=== PATIENT | female | born 1950 | race Caucasian/White ===

== ENCOUNTER 2022-12-14 14:57 | Outpatient (REF) | payer OTHER, SELFPAY | END 2022-12-14 14:58 | disposition home or self-care (01) | LOC: HO.LNP 14:57 | PROVIDERS: Visit Provider Physician Assistant | DX: L28.2 Other prurigo (principal) | CPT/HCPCS: 87070; 87205 ==

== ENCOUNTER 2025-02-23 13:43 | Outpatient (REF) | payer OTHER, SELFPAY ==
--- OUTSIDE RECORDS SUMMARY | 2025-02-23 14:13 | XMS_ITS | Clinical Summary ---
Author Organization [facility] Address [address] [place] [phone] Phone Care Team Providers Care Cashier Self Service Gasoline Name Role Phone Adebayo Chacko DO Primary Care Provider [phone] Encounters Date Type Department Care Team Description 02/21/2025 Transcribe Orders Virtual Department [address] [place] [address] Chelle Hurtado PA Postmenopausal bleeding (Primary Dx) from Last 3 Months Social History Tobacco Use Types Packs/Day Years Used Date Smoking Tobacco: Never Assessed Comments Unknown Sex and Gender Information Value Date Recorded Sex Assigned at Not on file Legal Sex Female 8:53 AM EDT Gender Identity Not on file Sexual Orientation Not on file Plan of Treatment Upcoming Encounters Date Type Department Care Team (Late st Contact Info) Description 02/28/2025 2:15 PM EDT Appointment [facility] [address] [place] [address] Chelle Hurtado PA [address] [place] [address] [place] [address] Medical Devices Not on file Insurance [employer] MEDICARE PREFERRED HMO REPLACEMENT [employer] MEDICARE PREFERRED HMO REPLACEMENT [employer] RE[employer]AC[employer] Care Teams Cashier Self Service Gasoline Relationship Specialty Start Date End Date Adebayo Chacko DO [address] [place] [phone] PCP - General Internal Medicine 02/23/25 Additional Source Comments The information contained in this document represents components of the legal health record. It is not the complete legal health record.[facility]
--- OUTSIDE RECORDS SUMMARY | 2025-02-23 14:13 | XMS_ITS | Encounter Summary ---
Author Organization [facility] Address [address] [place] [address] Phone Care Team Providers Care Vending Machine Mechanic Name Role Phone Adebayo Chacko DO Primary Care Provider [phone] Encounter Details Date Type Department Care Team (Latest Contact Info) Description 02/21/2025 Transcribe Orders Virtual Department [address] [place] [address] Chelle Hurtado PA [address] [place] [address] Postmenopausal bleeding (Primary Dx) Social History Tobacco Use Types Packs/Day Years Used Date Smoking Tobacco: Never Assessed Comments Unknown Sex and Gender Information Value Date Recorded Sex Assigned at Not on file Legal Sex Female 8:53 AM EDT Gender Identity Not on file Sexual Orientation Not on file documented as of this encounter Plan of Treatment Upcoming Encounters Date Type Department Care Team (Late st Contact Info) Description 02/28/2025 2:15 PM EDT Appointment [facility] [address] [place] [address] Chelle Hurtado PA [address] [place] [address] Scheduled Orders Name Type Priority Associated Diagnoses Orde r Schedule US Pelvis Imaging Routine Postmenopausal bleeding Expected: 02/21/2025, Expires: 02/21/2026 documented as of this encounter Visit Diagnoses Diagnosis Postmenopausal bleeding- Primary documented in this encounter Care Teams Vending Machine Mechanic Relationship Specialty Start Date End Date Adebayo Chacko DO [address] [place] [address] [email or web address] PCP - General Internal Medicine 02/23/25 documented as of this encounter Additional Source Comments The information contained in this document represents components of the legal health record. It is not the complete legal health record.[facility]
[2025-02-23 15:48] LABS: MANUAL DIFF FLAG NO
[2025-02-23 15:57] LABS: Hematocrit 39.6 % (37.0-47.0); Hemoglobin 13.5 g/dl (12.0-16.0); Imm Gran Abs Auto 0.02 X10*3/uL (0.00-0.03); Imm Gran Pct Auto 0.3 % (0.0-0.4); Lymphocytes Absolute Auto 1.3 X10*3/uL (1.2-4.9); Mean Corpuscular HGB Conc 34.1 g/dl (31.0-35.0); Mean Corpuscular Hemoglobin 30.7 pg (27.0-33.0); Mean Corpuscular Volume 90.0 fL (80.0-98.0); NRBC Abs Auto 0.000 X10*3/uL (0.0-0.012); NRBC Pct Auto 0.0 /100WBC (0.0-0.2); Platelet Count 302 X10*3/uL (160-400); Red Blood Count 4.40 X10*6/uL (4.20-5.50); White Blood Count 7.0 X10*3/uL (4.8-10.8)
[2025-02-23 16:47] LABS: Iron 64 mcg/dL (30-160); Percent Iron Saturation 20 % (15-50); Total Iron Binding Capacity 321 mcg/dL (228-428); Unsaturated Iron Binding 257 ug/dL
[2025-02-23 17:03] LABS: Ferritin 38 ng/mL (10-250)
== END 2025-02-23 13:44 | disposition home or self-care (01) ==
LOC: HO.MANLDS 13:43
PROVIDERS: Visit Provider Physician Assistant
DX: N95.0 Postmenopausal bleeding (principal)
CPT/HCPCS: 36415; 82728; 83540; 85025; 85652; 86140

== ENCOUNTER 2025-03-14 09:00 | Outpatient (REF) | payer OTHER, SELFPAY | END 2025-03-14 09:01 | disposition home or self-care (01) | LOC: HO.LNP 09:00 | PROVIDERS: Visit Provider Obstetrics & Gynecology | DX: N95.0 Postmenopausal bleeding (principal); Z12.31 Encounter for screening mammogram for malignant neoplasm of breast | CPT/HCPCS: 87626; 88175 ==

== ENCOUNTER 2025-03-14 09:00 | Outpatient (AMB) | payer OTHER, SELFPAY ==
--- NOTE | 2025-03-14 09:03 | A.OFFVIS_ITS ---
Vital Signs 03/14/25 09:04 Height 5 ft 4 in Weight 153 lb BMI 26.3 BP 116/74 Intake Visit Reasons: endometrial hyperplasia Drafting Clerk Required: No Information Interpreted: non-clinical & clinical Sanforizer: Sanforizer Present Accompanied by: Self / Same As Patient Allergies Sulfa (Sulfonamide Antibiotics) Allergy (Intermediate, Verified 03/14/25 09:05) Hives Is last menstrual period known: Yes Last menstrual period: 04/18/20 Post menopausal: Yes Patient : No Do you need a note to return to daycare/school/sports/work: Yes (for surgery on wednesday) HPI Comments Details: Presenting complaining of an episode of vaginal bleeding 2 weeks ago. The patient is on estradiol patch and Prometrium daily, stopped Prometrium every other day this was followed by an episode of bleeding Pelvic ultrasound done at [facility] on 02/28/2025 for postmenopausal bleeding showed thickened heterogenous endometrial stripe of 14 mm . Last co testing was? Last mammogram 3 years ago [facility] Surgical History History of oophorectomy, unilateral History of laparoscopy Family History Mother HTN (hypertension) Rheumatoid arteritis Father HTN (hypertension) High cholesterol Social History Household Members: Spouse and Children Housing: House Alcohol intake: never Patient Tobacco Use Status: Never used Tobacco Current occupational status: retired Sexually active: Yes Sexual orientation: Straight/Heterosexual Gender identity: Female Female Reproductive History Menstrual Date of last menstrual period: 04/18/20 Total pregnancies: 2 Full term: 1 Number of Living Children: 1 Review of Systems Card Reports as per HPI and Reports no additional complaints Resp Reports as per HPI and Reports no additional complaints GI Reports as per HPI and Reports no additional complaints Reports as per HPI Physical Exam Vital Signs: Last Vital Signs BP 116/74 03/14/25 09:04 BMI result Body Mass Index 26.3 Const General: cooperative, healthy appearing and comfortable Resp Effort & Inspection: normal respiratory effort Auscultation: clear to auscultation bilaterally Percussion: percussion normal Cardio Palpation: normal PMI Rate: regular rate Rhythm: regular rhythm Heart sounds: no murmurs and no rubs Peripheral pulses: Peripheral pulses 2+ throughout GI Inspection: Yes normal to inspection Palpation (GI): Soft to palpation, nontender, no guarding, not rigid and No hepatosplenomegaly present Percussion: Yes normal to percussion Auscultation: normal bowel sounds Rectal Exam - Female: deferred Assessment & Plan Assessment & Plan (1) Postmenopausal bleeding: Code(s): N95.0 - Postmenopausal bleeding Category: Medical Plan: Screening mammogram ordered. Co testing done. Instructions given to patient to discontinue estradiol patch and Prometrium Discussed with the patient the pelvic ultrasound findings, the endometrial stripe thickenss measured by ultrasound was more than 4mm. The negative predictive value, positive predictive value, Sensitivity, specificity of using ultrasound measurement of endometrial stripe to detecting endometrial pathology including hyperplasia , polyp or cancer were discussed with the patient. Recommended to the patient that the next step is an endometrial sampling via hysteroscopy D&C possible polypectomy versus endometrial biopsy to r/o endometrial pathology including hyperplasia or cancer. All the pros and cons risks and benefits of each approach were discussed with the patient, endometrial biopsy being less invasive, office procedure with less sensitivity and inability diagnose a polyp and removal versus hysteroscopy done under anesthesia more invasive more sensitive to endometrial cancer and possibility of diagnosing and endometrial polyp with the possibility of polypectomy. All questions were answered pt verbalized understanding and decided to proceed with hysteroscopy D&C possible polypectomy. Discussed with the patient the procedure , all benefits and risks including but not limited to inability to complete the procedure , insufficient endometrial tissue for a complete evaluation of the endometrial cavity , bleeding, infection, possible need for blood transfusion with all its risk ( HIV,syphilis, Hepatitis, anaphylaxis shock, others..), injury to bladder, rectum, possible need for laparoscopy/laparotomy or hysterectomy. The patient verbalized understanding and signed the consent. Instructions given the patient to stay NPO after midnight the day prior to the procedure and to take only the specific medication (s) discussed the morning of the surgical procedure and to schedule a 2 week postoperative appointment Orders: Orders MM tomosynthesis screening Today Z12.31 - Encounter for screening mammogram for malignant neoplasm of breast Coding Level of Care Code New Pt Level 3 (09822) Diagnoses Postmenopausal bleeding N95.0
[2025-03-14 09:04] VITALS: BP 116/74; BMI 26.3
--- OUTSIDE RECORDS SUMMARY | 2025-03-14 10:36 | XMS_ITS | Encounter Summary ---
Author Organization [facility] Address [address] [place] [phone] Phone Care Team Providers Care Gas Cutter Name Role Phone Adebayo Chacko DO Primary Care Provider [phone] Encounter Details Date Type Department Care Team (Latest Contact Info) Description 02/21/2025 Transcribe Orders Virtual Department [address] [place] [address] Chelle Hurtado PA [address] [facility] [place] [address] [place] [address] Postmenopausal bleeding (Primary Dx) Social History Tobacco Use Types Packs/Day Years Used Date Smoking Tobacco: Never Assessed Education Answer Date Recorded Are you interested in more education? Not on alfonso e 02/23/2025 Are you concerned about learning? Not on file 02/23/2025 No 02/23/2025 No 02/23/2025 Digital Access Answer Date Recorded No 02/23/2025 No 02/23/2025 Reliable internet access at home? Not on file 02/23/2025 Device with a working camera? Not on file Comments Unknown Sex and Gender Information Value Date Recorded Sex Assigned at Female 02/28/2025 9:10 AM EDT Legal Sex Female 8:53 AM EDT Gender Identity Female 02/28/2025 9:10 AM EDT Sexual Orientation Choose not to disclose 2024 9:10 AM EDT documented as of this encounter Plan of Treatment Not on file documented as of this encounter Results * US PELVIS TRANSABDOMINAL PLUS TRANSVAGINAL (02/28/2025 2:42 PM EDT) MGB IMG RECOMMENDATION COMMENT Anteverted uterus 14 mm; uterus bleeding; uterus submucosal fibroid; uterus malignancy; heterogeneous endometrial stripe; endometrial hyperplasia; Nonvisualization ovaries [facility] Anatomical Region Laterality Modality Pelvis, Uterus/Adnexa Ultrasound 02/28/2025 3:24 PM EDT Impressions 02/28/2025 3:27 PM EDT 1. Anteverted uterus with heterogeneous endometrial stripe measuring 14 mm in thickness. This is abnormal in a postmenopausal patient with bleeding. This may be due to endometrial hyperplasia, submucosal fibroid, or malignancy. AIR HOIST OPERATOR consultation recommended for consideration of biopsy. 2. Nonvisualization of the ovaries. Narrative 02/28/2025 3:27 PM EDT US PELVIS TRANSABDOMINAL AND TRANSVAGINAL Referring clinician's provided indication for this examination in [facility]: Outside Radiology Order; postmenopausal bleeding TECHNIQUE: Pelvic Ultrasound Transabdominal performed for global imaging of the pelvis. Pelvic Ultrasound Transvaginal performed for detailed imaging of the endometrium and/or adnexa. COMPARISON: None FINDINGS: Uterus: Size: 8.8 cm x 3.6 cm by 5.4 cm. Orientation: anteverted Myometrium: Diffusely heterogeneous without focal lesion. Endometrium: The endometrial stripe is 14 mm in thickness and appears heterogeneous. No fluid identified in the endometrial canal There are nabothian cysts in the cervix Right adnexa: Ovary: The right ovary is not visualized. Left adnexa: Ovary: The left ovary is not visualized Free fluid: No significant free fluid. Procedure Note Usman Magaña MD - 02/28/2025 US PELVIS TRANSABDOMINAL AND TRANSVAGINAL Referring clinician's provided indication for this examination in [facility]:Outside Radiology Order; postmenopausal bleeding TECHNIQUE: Pelvic Ultrasound Transabdominal performed for global imagingof the pelvis. Pelvic Ultrasound Transvaginal performed for detailedimaging of the endometrium and/or adnexa. COMPARISON: None FINDINGS: Uterus: Size: 8.8 cm x 3.6 cm by 5.4 cm. Orientation: anteverted Myometrium: Diffusely heterogeneous without focal lesion. Endometrium: The endometrial stripe is 14 mm in thickness and appearsheterogeneous. No fluid identified in the endometrial canal There are nabothian cysts in the cervix Right adnexa: Ovary: The right ovary is not visualized. Left adnexa: Ovary: The left ovary is not visualized Free fluid: No significant free fluid. IMPRESSION: 1. Anteverted uterus with heterogeneous endometrial stripe measuring 14mm in thickness. This is abnormal in a postmenopausal patient withbleeding. This may be due to endometrial hyperplasia, submucosal fibroid,or malignancy. AIR HOIST OPERATOR consultation recommended for consideration of biopsy. 2. Nonvisualization of the ovaries. us Chelle VELASQUEZ IMG US PELVIS Final Resul t documented in this encounter Visit Diagnoses Diagnosis Postmenopausal bleeding- Primary Postmenopausal bleeding documented in this encounter Care Teams Gas Cutter Relationship Specialty Start Date End Date Adebayo Chacko DO [address] [place] [address] [email or web address] PCP - General Internal Medicine 02/23/25 documented as of this encounter Additional Source Comments The information contained in this document represents components of the legal health record. It is not the complete legal health record.[facility]
--- OUTSIDE RECORDS SUMMARY | 2025-03-14 10:36 | XMS_ITS | Clinical Summary ---
Author Organization [facility] Address [address] [place] [address] Phone Care Team Providers Care Saw Man Name Role Phone Adebayo Chacko DO Primary Care Provider [phone] Encounters Date Type Department Care Team Description 02/28/2025 1:54 PM EDT - 02/28/2025 11:59 PM EDT Hospital Encounter [facility], [address] [address] Chelle Hurtado PA Discharge Disposition: Home or Self Care 02/21/2025 Transcribe Orders Virtual Department [address] [place] [address] Chelle Hurtado PA Postmenopausal bleeding (Primary Dx) [...] not to disclose 2024 9:10 AM EDT Plan of Treatment Not on file Medical Devices Not on file Procedures Procedure Name Priority Date/Time Associated Diagnosis Comments US PELVIS TRANSABDOMINAL PLUS TRANSVAGINAL Routine 02/28/2025 2:42 PM EDT Postmenopausal bleeding from Last 3 Months Results * US PELVIS TRANSABDOMINAL PLUS TRANSVAGINAL (02/28/2025 2:42 PM EDT) MGB IMG RECOMMENDATION COMMENT Anteverted uterus 14 mm; uterus bleeding; uterus submucosal fibroid; uterus malignancy; heterogeneous endometrial stripe; endometrial hyperplasia; Nonvisualization ovaries [facility] Anatomical Region Laterality Modality Pelvis, Uterus/Adnexa Ultrasound 02/28/2025 3:24 PM EDT Impressions 02/28/2025 3:27 PM EDT 1. Anteverted uterus with heterogeneous endometrial stripe measuring 14 mm in thickness. This is abnormal in a postmenopausal patient with bleeding. This may be due to endometrial hyperplasia, submucosal fibroid, or malignancy. ASSEMBLER MECHANICAL ORDNANCE consultation recommended for consideration of biopsy. 2. Nonvisualization of the ovaries. Narrative 02/28/2025 3:27 PM EDT US PELVIS TRANSABDOMINAL AND TRANSVAGINAL Referring clinician's provided indication for this examination in [facility]: Outside Radiology Order; postmenopausal bleeding TECHNIQUE: Pelvic [...] clinician's provided indication for this examination in [facility]:Outside Radiology Order; postmenopausal bleeding TECHNIQUE: Pelvic Ultrasound [...] due to endometrial hyperplasia, submucosal fibroid,or malignancy. ASSEMBLER MECHANICAL ORDNANCE consultation recommended for consideration of biopsy. 2. Nonvisualization of the ovaries. [facility] VELASQUEZ IM US PELVIS Final Resul t from Last 3 Months Insurance [employer]ED [employer] REPLACEMENT MEDICARE PART A & B Member Subscriber Plan / Payer (Ef fective 2025-Present) Name:Erika Lombardi Member ID:[id number] Relation to Subscriber:Self Name:PolandErika fleming Subscriber ID:[id number] Payer ID:[id number] Group ID:Not on file Type:Medicare Address: [employer] [address] [employer]ED HMO REPLACEMENT MEDICARE PART A & B [employer] REPLACEMENT MEDICARE PART A & B [employer]ED [employer]MO REPLACEMENT MEDICARE PART A & [place] [address] [address] MEDICARE PREFERRED HMO REPLACEMENT MEDICARE PART A & B [employer] REPLAC[employer] MEDICARE PART A & B Care Teams Saw Man Relationship Specialty Start Date End Date Adebayo Chacko DO [address] [place] [id number] [email or web address] PCP - General Internal Medicine 02/23/25 Additional Source Comments The information contained in this document represents components of the legal health record. It is not the complete legal health record.[facility]
== END 2025-03-14 09:57 | disposition home or self-care (01) ==
LOC: HO.HWS 09:01
PROVIDERS: Visit Provider Obstetrics & Gynecology
DX: N95.0 Postmenopausal bleeding (principal)
CPT/HCPCS: 99203

== ENCOUNTER → 2025-03-20 12:49 | Outpatient (BNV) | payer OTHER, SELFPAY | PROVIDERS: PCP Internal Medicine; Visit Provider Obstetrics & Gynecology | DX: N84.0 Polyp of corpus uteri (principal) | CPT/HCPCS: 58558 ==

== ENCOUNTER 2025-03-20 16:37 | Outpatient (BNV) | payer OTHER, SELFPAY | END 2025-03-20 16:44 | PROVIDERS: Absent Provider Internal Medicine Critical Care Medicine; Admitting Provider Internal Medicine Critical Care Medicine; PCP Internal Medicine; Visit Provider Radiology Diagnostic Radiology | DX: R06.02 Shortness of breath (principal) | CPT/HCPCS: 71045 ==

== ENCOUNTER 2025-03-20 16:37 | Inpatient (IN) | payer MEDICARE, SELFPAY ==
--- OUTSIDE RECORDS SUMMARY | 2025-03-15 19:27 | XMS_ITS | Data Portability ---
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) MDM MODERATE MUST MEET 2 OUT OF 3 ELEMENTS: PROBLEMS, DATA OR RISK ELEMENT 1: PROBLEMS ADDRESSED 1 OR MORE CHRONIC ILLNESS WITH EXACERBATION OR 2 OR MORE STABLE CHRONIC ILLNESSES OR 1 UNDIAGNOSED NEW PROBLEM OR 1 ACUTE ILLNESS W/SYMPTOMS OR 1 ACUTE COMPLICATED INJURY ELEMENT 2: DATA MUST MEET 1 OF 3 CATEGORIES CATEGORY 1: REVIEW OF PRIOR EXTERNAL NOTES, REVIEW OF RESULTS, ORDERING OF EACH TEST, ASSESSMENT REQUIRING INDEPENDENT HISTORIAN OR CATEGORY 2: INDEPENDENT INTERPRETATION OF TESTS BY ANOTHER PHYSICIAN OR SPECIALIST OR CATEGORY 3: DISCUSSION OF MGT OR TEST INTERPRETATION W/EXTERNAL PHYSICIAN OR SPECIALIST ELEMENT 3: RISK RISK OF COMPLICATIONS AND/OR MORBIDITY OR MORTALITY OF PATIENT MANAGEMENT PROVIDER MUST THOROUGHLY DOCUMENT EACH ELEMENT THAT IS COVERED [email or web address] Not available 05/26/2022 14:26:36 Plan of Treatment Reminders Order Date Submit Date Provider Last Modified By Organization Details Last Modified Time Details Appointments None recorded. Lab culture, skin - posterior left leg; calf 2022 023 [facility], [address] [place] [address], [place], [address], 3 11:23:12 unlisted lab - routine culture, stool 2021 022 [employer] (Centralized Electronic Ordering - All Locations), Patient Can Go To The Location Of Their Choice, [id number] 14:00:33 unlisted lab - fecal elastase 2021 022 [employer] [facility] (Centralized Electronic Ordering - All Locations), Patient Can Go To The Location Of Their Choice, [address] 2 14:00:33 Referral dermatolog ist referral 2023 024 [email or web address] 10 Mik Stearns MD, [address] [place], [address], 4 08:08:22 Procedures None recorded. Surgeries None recorded. Imaging None recorded. Medication Orders alprazolam 0.5 mg tablet 2024 025 [facility]/Pharmacy #[id number], [address] [place], [address], 5 15:10:55 albuterol sulfate HFA 90 mcg/actuat ion aerosol inhaler 2023 024 [id number] [address] [place], [address], 4 14:47:39 clonidine HCl 0.1 mg tablet 2023 024 [facility], [address] [place], [address], 5 15:06:07 valacyclov ir 1 gram tablet [address]/Pharmacy #0084, [address] [place], [address], 4 14:32:29 prednisone 10 mg tablet [address]/Pharmacy #0084, [address] [place], [address], 4 14:32:16 dicyclomin e 10 mg capsule 2021 023 [facility]/Pharmacy #0084, [address] [place], [address], 3 11:03:23 Patient TargetsNo targets recorded. Patient InstructionsNo instructions recorded. Reason for Referral Ham Sawyer Referral for M ultiple benign melanocytic nevi needs routine skin exam for new moles Referring Physician: Chelle Hurtado, Internal Medicine, Encounter Date: 12/27/2023 Results Created Date Observation Date Name Description Value Unit Range Abnormal Flag Note LastModifiedBy Organization Detail LastModifiedTime 02/29/20 25 02/28/2025 US, pelvi s, trans abdom inal + trans vagin al No observ ation record ed. [facility] [address], [place], [address], 03/02/2025 11:15:21 Result Notes None recorded. Problems Name Problem SNOMED Code Status Onset Date Resolution Date Notes Provider Name and Address Organization Details Recorded Time Carotid artery stenosis 99240055 Active 2021 Not Available [facility] 4 14:20:46 Carotid artery stenosis 29184586 Active 2021 mild, will monitor , repeat US every year (next check 02/10) Not Available [facility] 4 14:20:46 Irritable bowel syndrome 04175653 Active 2021 Not Available [facility] 4 14:20:46 Menopausa l syndrome 232552047 Active 2021 Not Available [facility] 4 14:20:46 Abdominal pain 98876105 Active 2021 Not Available [facility] 4 14:20:46 Herpes zoster 5389601 Active 2022 Not Available [facility] 4 14:20:46 Pruritic rash 16886497 Active 2022 Not Available [facility] 4 14:20:46 Anxiety 13587541 Active 2022 Not Available [facility] 4 14:20:46 Asthma 834483447 Active 2022 Not Available [facility] 4 14:20:46 Menopausa l symptom 68944268 Active 2023 CHELLE HURTADO, RON [address] [place] [address], [address], [facility] 4 08:32:49 Selective serotonin re-uptake inhibitor withdrawa l 624205936 Active 2023 RON QUINTEROS [address] [place] [address], [address], [facility] 4 14:39:35 Multiple benign melanocyt ic nevi 574301510 Active 2023 RON QUINTEROS [address] [place] [address], [address], [facility] 4 14:53:39 Skin lesion 45071780 Active 2023 RON QUINTEROS [address] [place] [address], [address], [facility] 4 08:44:46 Acute urinary tract infection 158074959 Active 2024 RON QUINTEROS [address] [place] [address], [address], [facility] 5 08:59:48 Chronic low back pain 857124421 Active 2024 RON QUINTEROS [address] [place] [address], [address], [facility] 5 15:55:01 Postmenop ausal bleeding 58949234 Active 2024 RON QUINTEROS [address] [place] [address], [address], [facility] 5 13:30:40 Endometri al hyperplas ia 897194809 Active 2024 RON QUINTREOS [address] [place] [address], [address], [facility] 5 11:15:51 Notes:Some problems listed i n Documents: #[id number], #[id number], #[id number], #[id number], #[id number] could not be added to this patient's chart. Please review these documents and add these problems to the patient's chart manually as needed. Problem Notes None recorded. Medical Equipment None Reported. Allergies Allergen ID Allergen Name Allergen Category Reaction Reaction Severity Criticality Documentation Date Start Date Code Code System Note Provider Name and Address Organization Details Recorded Time 5953 Bactrim medicatio n hives Not available Not available 02/02/2022 43876 9 RxNorm Nyasia nunez [facility] 2 11:49:15 595 Valium medicatio n hallucina tions Not available Not available 02/02/202276959 2 RxNorm Nyasia Parkerner mayra [facility] Internal [facility] 2 11:49:30 Medications Name Sig Start Date Stop Date Status Note LastModified by Organization Details LastModified Time clonidine HCl 0.1 mg tablet TAKE 1 TABLET BY MOUTH TWICE A DAY NEEDED 01/30 completed Not Available Not Available Not Available prednisone 10 mg tablet 40 mg x 3 days30 mg x 3 days20 mg x 3 days10 mg x 3 days 12/26 completed Not Available Not Available Not Available valacyclovi r 1 gram tablet Take 1 tablet every 8 hours by oral route for 7 days. 12/26 completed Not Available Not Available Not Available alprazolam 0.5 mg tablet Take 1 tablet twice a day by oral route as needed for 30 days. 2024 active Not Available Not Available Not Avai lable amoxicillin 875 mg tablet Take 1 tablet every 12 hours by oral route for 10 days. 01/30 completed Not Available Not Available Not Available estradiol 0.025 mg/24 hr weekly transdermal patch apply one patch twice a week through transderm al route 2024 active Not Available Not Available Not Avai lable lorazepam 0.5 mg tablet Take 1 tablet twice a day by oral route as needed for 30 days. 01/30 completed Not Available Not Available Not Available estradiol 1 mg tablet Take 1 tablet every day by oral route as directed for 21 days. 01/30 completed Not Available Not Available Not Available albuterol sulfate HFA 90 mcg/actuati on aerosol inhaler Inhale 2 puffs every 4 hours by inhalatio n route for 30 days. 2023 active Not Available Not Available Not Avai lable dicyclomine 10 mg capsule Take 1 capsule 3 times a day by oral route as needed for 10 days. 12/14 completed Not Available Not Available Not Available progesteron e micronized 100 mg capsule TAKE 1 CAPSULE BY MOUTH EVERY DAY 01/30 completed Not Available Not Available Not Available estradiol 0.025 mg/24 hr semiweekly transdermal patch APPLY 1 PATCH BY TRANSDERM AL ROUTE TWICE A WEEK 07/26 completed Not Available Not Available Not Available duloxetine 20 mg capsule,del ayed release TAKE 1 CAPSULE BY MOUTH EVERY DAY FOR 90 DAYS NEEDS APPT FOR FURTHER REFILLS. CALL OFFICE 2024 active Not Available Not Available Not Avai lable duloxetine 30 mg capsule,del ayed release Take 1 capsule every day by oral route. 12/26 completed Not Available Not Available Not Available Jinteli 1 mg-5 mcg tablet Take 1 tablet every day by oral route for 90 days. 05/27 completed Not Available Not Available Not Available Vitals Date Recorded Body height Body mass index (BMI) Body weight Heart rate Oxygen saturation Oxygen saturation in Arterial blood by Pulse oximetry Systolic And Diastolic Provider Name and Address Organization Details Last Updated DateTime 3 162.56 cm 25.6 kg/m2 35735.2 6 g 62 /min 99 % 99 % 120/70 mm[Hg] Ghazal Granados [facility] 3 11:06:02 Date Recorded Body height Body mass index (BMI) Body weight Heart rate Oxygen saturation Oxygen saturation in Arterial blood by Pulse oximetry Systolic And Diastolic Provider Name and Address Organization Details Last Updated DateTime 4 162.56 cm 24.9 kg/m2 15921.8 9 g 66 /min 97 % 97 % 122/72 mm[Hg] Kory Rocha [facility] 4 14:33:51 Date Recorded Body height Body mass index (BMI) Body weight Heart rate Oxygen saturation Oxygen saturation in Arterial blood by Pulse oximetry Systolic And Diastolic Provider Name and Address Organization Details Last Updated DateTime 5 162.56 cm 24.7 kg/m2 54782.3 g 68 /min 98 % 98 % 120/80 mm[Hg] Ghazal Granados [facility] 5 14:49:50 Date Recorded Body weight Body mass index (BMI) Body height Oxygen saturation Oxygen saturation in Arterial blood by Pulse oximetry Heart rate Systolic And Diastolic Provider Name and Address Organization Details Last Updated DateTime 2 91899.2 9 g 24 kg/m2 162.56 cm 98 % 98 % 81 /min 118/62 mm[Hg] Nyasia Gross [facility] 2 11:52:59 Date Recorded Body height Body mass index (BMI) Body weight Oxygen saturation Oxygen saturation in Arterial blood by Pulse oximetry Heart rate Systolic And Diastolic Provider Name and Address Organization Details Last Updated DateTime 2 162.56 cm 24.5 kg/m2 81577.2 7 g 99 % 99 % 62 /min 120/60 mm[Hg] Nyasia Gross [facility] 2 13:50:34 Social History Question Answer Notes LastModified by Organizat ion Details LastModified Time Tobacco Smoking Status Never Smoker Nyasia Gross [facility] 02/02/2022 11:43:30 What Was The Date Of Your Most Recent Tobacco Screening? 01/30/2025 [email or web address] Information not available 01/30/2025 Sex: Unknown Functional Status Question Answer Note LastModified by Organization D etails LastModified Time Do you or have you ever used any other forms of tobacco or nicotine? No [email or web address] Information not available 12/14/2022 Mental Status None recorded. Family History Nothing Reported. Medical History No medical history recorded. Gynecological HistoryNo gynecological history recorded. Obstetrics History GPAL:G 0 P 0 0 0 0 Immunizations Vaccine Type Date Status Note Provider Nam e and Address Organization Details Recorded Time COVID-19, mRNA, LNP-S, PF, 100 mcg/0.5mL dose or 50 mcg/0.25mL dose 1 completed Not Available [facility] 06/26/2023 14:20:47 COVID-19, mRNA, LNP-S, PF, 100 mcg/0.5mL dose or 50 mcg/0.25mL dose 1 completed Not Available [facility] 06/26/2023 14:20:47 COVID-19, mRNA, LNP-S, PF, 100 mcg/0.5mL dose or 50 mcg/0.25mL dose 1 completed Not Available [facility] 06/26/2023 14:20:47 Influenza, split virus, quadrivalent, preservative 3 completed Not Available [facility] 06/26/2023 14:20:46 Influenza, split virus, quadrivalent, preservative 7 completed Not Available [facility] 06/26/2023 14:20:47 Influenza, split virus, quadrivalent, preservative 0 completed Not Available [facility] 06/26/2023 14:20:47 Influenza, split virus, quadrivalent, preservative 1 completed Not Available [facility] 06/26/2023 14:20:46 influenza, [id number] 1 completed Not Available [facility] 06/26/2023 14:20:47 influenza, [id number] 2 completed Not Available [facility] 06/26/2023 14:20:47 Past Encounters Encounter ID Performer Location Encounter Start Date Encounter Closed Date Diagnosis/Indication Diagnosis SNOMED-CT Code Diagnosis ICD10 Code Diagnosis IMO Codes Diagnosis Note [id number] RON QUINTEROS [facility] [address] [facility],[place] [address] 02/02/2022 11:21:10 02/03/2022 11:05:37 Carotid artery stenosis 98353325 I65.29 will monitor every year Irritable bowel syndrome 21522235 K58.9 will fu in a few weeks [id number] Adebayo Chacko DO [facility] [address] [facility],[place] [address] 05/26/2022 13:46:02 05/26/2022 14:37:05 Abdominal pain 32954634 R10.9 long detailed discussion for thislong discuss about various factors we will have her get stool cult and pancreatic enzyme fecal elastasesh e will then try miralax daily and she will be seen after the holdiay [id number] Adebayo Chacko [facility] [address] [facility],[place] [address] 12/14/2022 10:57:22 12/14/2022 11:44:36 Herpes zoster 1251113 B02.9 start med combo Pruritic rash 61073570 L 28.2 send out culture [id number] Adebayo Chacko [facility] [address] [facility],[place] [address] 12/27/2023 14:13:12 12/27/2023 15:00:08 Renewal of prescription 459722933 Z76.0 refilled Depression screening 171 584126 Z13.31 long standing hx of depression , has been seeing Selective serotonin re-uptake inhibitor withdrawal 269718615 T43.205A will have her try clonidine for the withdrawal symptomsca n use ativan as well for the more severe effects Asthma 296016042 J45.90 9 needs refill Multiple b enign melanocytic nevi 598222850 D22.9 will set up with derm [id number] Adebayo Chacko [facility] [address] [facility],[place] [address] 01/30/2025 14:21:42 01/30/2025 15:22:33 Depression screening 059062735 Z13.31 long standing hx of depression , has been seeing Anxiety 51074466 F41.9 will adjust to alt to continue to have patient come down of the duloxetine Health Concerns Section Related Observation LastModified by Organization Detai ls LastModified Time None Recorded Concern Status LastModified by Organization Details LastModified Time None Recorded Advance Directives Directive None Recorded Payers Insurance Date Sequence Insurance Name Policy Number Policy Craig Covered Member ID Craig Member ID Guarantor Name 01/31/2025 1 [facility] - MEDICARE PREFERRED (MEDICARE REPLACEMENT HMO) JAZMINE Lombardi [id number] 1 Erika Lombardi Notes Date Note Type Note Provider Name and Address Organization Details Recorded Time 2 text/html ROS as noted in the HPI NPV the patient has a life line screening done for insurancethe patient reports that she has mild build up of plaque, bilateral carotid stenosis minimal change in bone density screening, already doing strength and vitamin D supplementationwill just screen again in two years; would prefer to be off medication if they can discussed gut health, possible IBS C but did have an indepth convo about SIBO as a possilibity and the treatment that comes with it will start elim diet and again and start walking again to eliminate other variables after further discussion as she had been doing this prior will fu with patient soon RON QUINTEROS [address] [place], [address], [facility] 02/02/2022 13:27:43 2 text/html ROS as noted in the HPI ongoing abdominal pain and irritable bowel symptomsstarted sev years agoand was seen by GI and had colonoscopy which was negrelates that she has been having these bouts of abdom pain feel tightness and pain in a bdlast bout was a year ago and she saw another GI dr and was told to clean out colon and told to take linzess has had linzess in past which did not work most recently at [facility] she had another bout after eating and relates had another bout yesterday always after eating relates she has had a prob with anxiety depress for decades Adebayo Chacko DO [address] [place], [address], [facility] 06/01/2022 13:54:38 3 text/html ROS as noted in the HPI c/o rash rash behind the left knee > spreading up posteriorly of the left legpossible shingles? vs herpes/staph infection? less likely given her presentationburning, painful and itchy no fever, no chills vesicles fluid filled took a swab of the patient's leaking vescile to send out to confirm diagnosisexclude others RON QUINTEROS [address] [place], [address], [facility] 12/14/2022 11:29:06 4 text/html ROS as noted in the HPI medication f/u the patient reports that she has been doing overall the patient reports she is doing okay with the duloxetine that we have taking it over from her psychcurrently on the duloxetine 20 mg after previous discussion on the portalthe patient originally start at 30 mg, down to 20 mg, still have some issues getting off the medication (was switched to this due to difficulties getting of paxil) discussed options, will see if clonidine helps with the withdrawal symptoms she has been experiencing needs refill of her inhaler as wellhas been using it a little bit more due to weather RON QUINTEROS [address] [place], [address], [facility] 12/27/2023 14:58:44 5 text/html ROS as noted in the HPI medication check the patient is doing wellthe patient is still having trouble with anxiety and disassociation as she tried to lower her dose of duloxetine the patient and I discussed some optionsthe patient and I will switch out the xanax for longer affect she tends to get panic attacks and feels very poor as she goes down on the dose duloxetine will have patient send my an update on the portal RON QUINTEROS [address] [place], [address], [facility] 01/30/2025 15:21:39 OBGyn Episode No OBEpisode recorded.
--- OUTSIDE RECORDS SUMMARY | 2025-03-15 19:27 | XMS_ITS | Data Portability ---
Author Organization [place] - [facility],, NAN HADLEY MD Address [address] [facility] [address] [place] [address] Assessment No assessment recorded. Plan of Treatment Reminders Order Date Submit Date Provider Last Modified By Organization Details Last Modified Time Details Appointments None recorded. Lab cytology, Pap smear 2012 013 [facility], Cytopathology Service, [address] [place], [address], 3 07:53:21 occult blood, screen 2012 013 [email or web address] 1 In-Office Order, Internal Use Only DO Not Attach Compendium DO Not Attach Compendium, Do Not Delete/merge, [id number] 3 13:43:04 biopsy, endometri al 2012 013 [facility], Cytopathology Service, [address] [place], [address], 3 05:14:19 cytology, Pap smear 2011 012 [facility], Cytopathology Service, [address] [place], [address], 3 05:13:52 occult blood, screen 2011 012 [facility] In-Office Order, Internal Use Only DO Not Attach Compendium DO Not Attach Compendium, Do Not Delete/merge, [id number] 3 05:13:49 Referral None recorded. Procedures biopsy, endometri um (PROC) 2012 013 AMBER In-Office Order, Internal Use Only DO Not Attach Compendium DO Not Attach Compendium, Do Not Delete/merge, [id number] 3 05:14:18 Surgeries None recorded. Imaging MAMMO, screening , digital, bilateral 2012 013 [facility] [address] [place], [address], 4 07:42:10 ultrasoun d, pelvic transabdo colleen & transvagi nal 2012 013 [facility] (Radiology), [address] [place], [address], 3 05:14:16 bone density study 2011 012 [facility] (Central Scheduling Radiology), [address] [place], [address], 3 05:13:51 MAMMO, screening , digital, bilateral 2011 012 [facility] (Central Scheduling Radiology), [address] [place], [address], 3 05:13:52 Medication Orders Detrol LA 4 mg capsule,e xtended release 2012 013 [id number], [address] [place] [address], [id number], 3 11:46:00 Patient TargetsNo targets recorded. Patient Instructions Encounter Date Encounter Id Patient Instructions Last Modified By Organization Details Last Modified Time 2011 [id number] hot flashes duri ng menopause: care instructions AMBER Not available 01/13/2013 05:13:52 She appears to b e doing well. She is advised to get 1500 mg of calcium daily into her diet and supplements combined. There is a health benefit with adequate vitamin D supplementation to at least 400 units daily, daily aerobic exercise of 30 minutes, and stress reduction. Monthly self breast exam was taught, and stressed, and is advised to call if she discovers any new mass in the breast. Seat belt use for herself and passengers are advised. There are significant health benefits of becoming and remainig fit, with an optimal BMI. There is a potential reduction in chronic discomfort, diminished risks of hypertension, diabetes, and heart disease with the proper weight management. With a recommended BMI there can be improved mobility as she ages. Strategies to reach and maintain her target weight were discussed in detail. She has not had a bone density test in a few years, one is ordered. She is considering going back on HRT, issues discussed, she will think about it and return for discussion if she would like to learn more about this. Not available 12/25/2011 12:54:54 07/18/2012 [id number] vaginal bleeding after menopause: care instructions AMBER Not available 01/13/2013 05:14:16 She is having ne w onset PMB, will have her go for a pelvic sonogram then return for an EMB, we discussed this at length, she understands and agrees. Literature given to review. Return for EMB. All questions answered, we discussed the mylex and pipelle emb and why we would use the different types of cannual. Face to face discussion 25 minutes Not available 07/18/2012 13:44:51 07/26/2012 [id number] endometrial biop sy: about this test AMBER Not available 01/13/2013 05:14:18 She tolerated th e EMB well, post op care discussed. Call for results. Not available 07/26/2012 14:06:20 04/11/2013 [id number] vaccinations for children: care instructions [email or web address] Not available 04/11/2013 14:16:55 influenza (flu) vaccine: care instructions [email or web address] Not available 04/11/2013 14:16:55 learning about breast cancer screening [email or web address] Not available 04/11/2013 12:18:15 bladder training : care instructions [email or web address] Not available 04/11/2013 12:18:15 She appears to b e doing well. She has been having urinary incontinence, just happens she does not feel it when it does, few drops at a time, we discussed options , she would like to try Detrol to see if this helps, possible side effects and risks discusesd, all questions answered. If no improvement suggest she go for urology referral. She requests a flu vaccine today, one is given. She is advised to get 1500 mg of calcium daily into her diet and supplements combined. There is a health benefit with adequate vitamin D supplementation to at least 400 units daily, daily aerobic exercise of 30 minutes, and stress reduction. Monthly self breast exam was taught, and stressed, and is advised to call if she discovers any new mass in the breast. Seat belt use for herself and passengers are advised. There are significant health benefits of becoming and remainig fit, with an optimal BMI. There is a potential reduction in chronic discomfort, diminished risks of hypertension, diabetes, and heart disease with the proper weight management. With a recommended BMI there can be improved mobility as she ages. Strategies to reach and maintain her target weight were discussed in detail. Not available 04/11/2013 13:43:04 Reason for Referral None Reported. Results Created Date Observation Date Name Description Value Unit Range Abnormal Flag Note LastModifiedBy Organization Detail LastModifiedTime 04/11/20 13 04/11/2013 occul t blood , scree n Occult Blood negati ve Not Available In-Office Order Internal Use Only DO Not Attach Compendium DO Not Attach Compendium, Do Not Delete/merge, [id number] 04/11/2013 11:06:37 12/25/19 12 12/25/2011 occul t blood , scree n Occult Blood negati ve Not Available In-Office Order Internal Use Only DO Not Attach Compendium DO Not Attach Compendium, Do Not Delete/merge, [id number] 12/25/2011 10:25:19 12/24/19 12 2011 cytol ogy, Pap smear Pap neg Not Available [facility], Cytopathology Service [address] [place], [address], 12/28/2011 09:22:57 07/26/19 13 07/26/2012 patho logy, surgi lucia surgicalcase endom etria l biops y: -frag ments of benig n proli ferat eb type endom etria l epith elium . -endo metri al polyp . kelsi alcantara M.D. (case maddison d 07 28 2012) pre-o p/cli nical diagn osis: postm enopa usal bleed ing speci men and site: endom etriu m-bio psy gross descr iptio n: label ed endo metri al biops y . recei jr in forma harpreet IS a 2.0 x 1.0 x 0.2 [address] gate of soft, epstein-p ink to red tissu e fragm ents admix ed with mucus and blood clot, which IS wrapp ed in paper and submi tted in toto in one casse tte, multi ple piece s, x2. ts physi cians : felicia carmona n /#[phone] anato jenifer patho logy servi wallace provi ded [facility] at [address] [place] [address], [place] [address] Not Available [facility], Cytopathology Service [address] [place] [address], [address], 07/28/2012 12:05:10 04/11/20 13 04/11/2013 pap1c ase [id number] thinp rep Pap, image d: negat eb for squam ous intra epith elial lesio n and malekaterina angelocy . rebec ca isis abad, CT(as cp) (case elect trey hopper maddison d 04 13 2013) adequ acy: satis facto ry. endoc ervic al trans forma tion zone compo nent absen t. sourc e: thinp rep Pap, cervi lucia, image d clini lucia infor matio n: HPV if diagn osis of ASCUS . menop ause, lps 2 neg * cytop athol ogy servi wallace provi ded by [facility] at the above addre ss. Not Available [facility], Cytopathology Service [address] [place] [address], [address], 04/14/2013 09:23:21 01/06/20 12 01/05/2012 bone densi ty study No observ ation record ed. [facility] (Medical Records) [address], [place], [address], 01/13/2013 05:13:52 01/13/20 12 01/05/2012 MAMMO , scree chelo, digit al, bilat eral No observ ation record ed. [facility] (Central Scheduling Radiology) [address] [place], [address], 01/13/2013 05:13:53 01/18/20 12 01/05/2012 imagi ng/di agnos tic resul t No observ ation record ed. [facility] Not Available 2012 05:13:56 07/25/19 13 07/21/2012 ultra sound , pelvi c trans abdom inal & trans vagin al No observ ation record ed. [facility] (Radiology) [address] [place], [address], 01/13/2013 05:14:21 Result Notes None recorded. Problems Name Problem SNOMED Code Status Onset Date Resolution Date Notes Provider Name and Address Organization Details Recorded Time Endometriosis Active Not Available [facility] 3 03:01:02 Oligoovulator y dysfunctional uterine bleeding 052211014 Active Not Available [facility] 3 03:01:09 Postmenopausa l bleeding 35784813 Active Not Available [facility] 3 03:01:02 Senile osteopenia 52138102 Active Not Available [facility] 3 03:01:02 Depressive disorder 58382577 Active Not Available [facility] 3 03:01:02 Specialized medical examination Active Nan Hadley MD [address], [place], [address] , [place] [facility], 3 13:43:04 Urinary incontinence 406519972 Active Nan Hadley MD [address], [place], [address] , [place] [facility], 3 13:43:04 Problem Notes None recorded. Procedures Surgical History Date Name Laterality Status Provider Name and Address Organization Details Recorded Time 07/26/19 13 Endometrial Biopsy completed Nan Hadley MD [address] [facility],[address], [place], [address], [place] - [facility], 07/26/2012 15:20:18 12/19/18 87 Laparoscopy completed Evonne Mendiola in [facility], 11/10/2011 14:03:30 Tonsillectomy completed Evonne Mendiola in [facility], 11/10/2011 14:03:30 Oophorectomy completed Evonne Mendiola in [facility], 11/10/2011 14:03:30 Imaging Results None recorded. Procedure Notes None recorded. Medical Equipment None Reported. Allergies Allergen ID Allergen Name Allergen Category Reaction Reaction Severity Criticality Documentation Date Start Date Code Code System Note Provider Name and Address Organization Details Recorded Time 421 Substance with sulfonami de structure and antibacte rial mechanism of action (substanc e) medicatio n hives Not available Not available 11/10/2011 50258 8003 SNOMED [place] Mcdonough in [facility], 2 14:10:36 Medications Name Sig Start Date Stop Date Status Note LastModified by Organization Details LastModified Time prednisone 10 mg tablet active Not Available Not Available No t Available azithromycin 250 mg tablet active Not Available Not Availabl e Not Available Detrol LA 4 mg capsule,extend ed release Take 1 capsule every day by oral route. 2012 active Not Available Not Available Not Avai lable bupropion HCl SR 100 mg tablet,12 hr sustained-rele ase active Not Available Not Available Not Available paroxetine 20 mg tablet active Not Available Not Available No t Available Advair Diskus 250 mcg-50 mcg/dose powder for inhalation active Not Available Not Available N ot Available naproxen 500 mg tablet active Not Available Not Available No t Available ProAir HFA 90 mcg/actuation aerosol inhaler active Not Available Not Available Not Available omeprazole 20 mg tablet,delayed release active Not Available Not Available Not Available Vitals Date Recorded Body height Body weight Body mass index (BMI) Heart rate Systolic And Diastolic Provider Name and Address Organization Details Last Updated DateTime 07/18/2012 162.56 cm 20054.80 8518 g 27.7 kg/m2 73 /min 133/64 mm[Hg] Lorene Mendiola in [facility], 07/18/2012 13:05:28 Date Recorded Body height Body weight Body mass index (BMI) Heart rate Systolic And Diastolic Provider Name and Address Organization Details Last Updated DateTime 07/26/2012 162.56 cm 00203.24 5466 g 27.8 kg/m2 74 /min 134/76 mm[Hg] Lorene Mendiola in [facility], 07/26/2012 13:30:38 Date Recorded Body height Body weight Body mass index (BMI) Heart rate Systolic And Diastolic Provider Name and Address Organization Details Last Updated DateTime 2011 161.29 cm 10589.23 6634 g 29.3 kg/m2 91 /min 123/73 mm[Hg] Lorene Larios [place] - [place] in [facility], 2011 11:06:30 Date Recorded Heart rate Body weight Body mass index (BMI) Systolic And Diastolic Provider Name and Address Organization Details Last Updated DateTime 04/11/2013 80 /min 06502.867 154 g 28.2 kg/m2 104/54 mm[Hg] Evonne Baileyfredo Mendiola in [facility], 04/11/2013 11:00:33 Date Recorded Body height Provider Name an d Address Organization Details Last Updated DateTime 04/11/2013 162.56 cm Lorene krueger in [facility], 04/11/2013 10:44:03 Social History Question Answer Notes LastModified by Organizat ion Details LastModified Time Tobacco Smoking Status Never Smoker Not Available [facility] 04/23/2020 03:19:41 Are You Blind Or Do You Have Difficulty Seeing? No [id number] Information not available 04/23/2020 What Is Your Level Of Caffeine Consumption? Moderate [id number] Information not available 04/23/2020 Are You Deaf Or Do You Have Serious Difficulty Hearing? No [id number] Information not available 04/23/2020 What Type Of Diet Are You Following? REGULAR [id number] Information not available 04/23/2020 Which Illicit Or Recreational Drugs Have You Used? None [id number] Information not available 04/23/2020 Education 2 Year College Information not available 2011 Marital Status Informatio n not available 2011 Are You Sexually Active? Yes [id number] Information not available 04/23/2020 How Much Tobacco Do You Smoke? No [id number] Information not available 04/23/2020 General Stress Level Low Information not available 2011 Do You Have Difficulty Walking Or Climbing Stairs? No [id number] Information not available 04/23/2020 Sex: Unknown Functional Status Question Answer Note LastModified by Organizat ion Details LastModified Time What is your level of alcohol consumption? None [id number] Information not available 04/23/2020 Do you have difficulty doing errands alone? No [id number] Information not available 04/23/2020 What is your occupation? retired [email or web address] Information not available 04/11/2013 Do you have difficulty dressing, bathing, grooming, or toileting? No [id number] Information not available 04/23/2020 What is your exercise level? Moderate [id number] Information not available 04/23/2020 Mental Status Question Answer Note LastModified by Organization D etails LastModified Time Do you have difficulty concentrating, remembering or making decisions? No [id number] Information no t available 04/23/2020 Family History Relationship Description Onset Age of this Age Resolved Age Notes LastModified by Organization Details LastModified Time Mother Hypertensive disorder 75 Unknow n cause (previ ously record ed as Hypert ension ) [id number] Not available 04/09/2013 03:00:57 Father Heart disease Hx Angina (previ ously record ed as Heart Proble m) [id number] Not available 04/09/2013 03:00:57 Medical History Condition Response Anesthesia complications N High Blood Pressure N Kidney or Bladder Problems N Thyroid Problems N GI Problems Y Depression Y Lung Disease Y Defects or Inherited Disease N Anemia N History of Ovarian Cancer N History of Breast Cancer N BRCA testing in past N Psychiatric Illness N Diabetes N Arthritis N Headaches or Migraines N Infertility N Asthma Y History of Cancer N Endometriosis Y Hepatitis N Heart Disease N Hypertension N Gynecological History Statement/Question Response If Post Menopausal, Age at Menopause 54 Age at Menarche 12 Age at First Child 42 Obstetrics History GPAL:G 2 P 1 0 0 1 Type Value Full Term 1 Living 1 Total 2 Immunizations Vaccine Type Date Status Note Provider Nam panda and Address Organization Details Recorded Time influenza, [id number] 04/21/2011 completed Nan Hadley MD [address], [place], [address], [place] - [facility], 07/18/2012 13:12:53 Influenza, split virus, trivalent, PF 04/11/2013 completed Not Available [facility] 2019 02:22:34 influenza, [id number] 04/21/2012 completed Nan Hadley MD [address], [place], [address], [facility] - [facility], 07/18/2012 13:12:53 Past Encounters Encounter ID Performer Location Encounter Start Date Encounter Closed Date Diagnosis/Indication Diagnosis SNOMED-CT Code Diagnosis ICD10 Code Diagnosis IMO Codes Diagnosis Note [id number] MD NAN Roque MD [address] [place] [address] 2011 10:37:23 2011 14:58:53 [id number] MD NAN Roque MD [address] [place] [address] 07/18/2012 12:55:44 07/19/2012 09:27:00 [id number] MD NAN Roque MD [address] [place] [address] 07/26/2012 13:22:59 07/26/2012 15:48:13 [id number] MD NAN Roque MD [address] [place] [address] 04/11/2013 10:40:32 04/12/2013 11:59:28 Specialized medical examination 82416251 Screening for malignant neoplasm of rectum 302387041 Screening mammography 04980488 Urinary incontinence 287145736 Influenza vaccine needed [id number] 106 Health Concerns Section Related Observation LastModified by Organization Detai ls LastModified Time None Recorded Concern Status LastModified by Organization Details LastModified Time None Recorded Advance Directives Directive None Recorded Payers Insurance Date Sequence Insurance Name Policy Number Policy Craig Covered Member ID Craig Member ID Guarantor Name 02/03/[address] [facility] Jean Paul Lombardi [id number] Erika Lombardi Notes Date Note Type Note Provider Name and Address Organization Details Recorded Time 2011 text/html ROS as noted in the HPI Nan Hadley MD [address] [facility],[address], [place], [address], [facility] - [facility], 12/25/2011 12:55:19 07/18/2012 text/html ROS as noted in the HPI Nan Hadley MD [address] [facility],[address], [place], [address], [place] - [facility], 07/18/2012 13:48:00 07/26/2012 text/html ROS as noted in the HPI Nan Hadley MD [address] [facility],[address], [place], [address], [facility] - [facility], 07/26/2012 15:20:29 04/11/2013 text/html ROS as noted in the HPI Nan Hadley MD [address] [facility],[address], [place], [address], [facility] - [facility], 04/11/2013 13:44:27 OBGyn Episode No OBEpisode recorded.
--- OUTSIDE RECORDS SUMMARY | 2025-03-15 19:27 | XMS_ITS | Clinical Summary ---
Author Organization [facility] Address [address] [place] [id number] Phone Care Team Providers Care Coal Miner Name Role Phone Adebayo Chacko DO Primary Care Provider [phone] Encounters Date Type Department Care Team Description 02/28/2025 1:54 PM EDT - 02/28/2025 11:59 PM EDT Hospital Encounter [facility], [address] [address] Chelle Hurtado PA Discharge Disposition: Home or Self Care 02/21/2025 Transcribe Orders Virtual Department [address] [place] [address] Chelle Hurtado PA Postmenopausal bleeding (Primary Dx) [...] heterogeneous endometrial stripe; endometrial hyperplasia; Nonvisualization ovaries [facility] Anatomical Region Laterality Modality Pelvis, Uterus/Adnexa Ultrasound 02/28/2025 3:24 PM EDT Impressions 02/28/2025 3:27 PM EDT 1. Anteverted uterus with heterogeneous endometrial stripe measuring 14 mm in thickness. This is abnormal in a postmenopausal patient with bleeding. This may be due to endometrial hyperplasia, submucosal fibroid, or malignancy. PUBLICATION DIRECTOR consultation recommended for consideration of biopsy. 2. Nonvisualization of the ovaries. Narrative 02/28/2025 3:27 PM EDT US PELVIS TRANSABDOMINAL AND TRANSVAGINAL Referring clinician's provided indication for this examination in [facility]: Outside Radiology Order; postmenopausal bleeding [...] clinician's provided indication for this examination in [facility]:Outside Radiology Order; postmenopausal bleeding TECHNIQUE: [...] due to endometrial hyperplasia, submucosal fibroid,or malignancy. PUBLICATION DIRECTOR consultation recommended for consideration of biopsy. 2. Nonvisualization of the ovaries. [facility] Preston VELASQUEZ IM US PELVIS Final Resul t from Last 3 Months Insurance [employer] PREFERRED H[employer] REPLACEMENT MEDICARE PART A & B Member Subscriber Plan / Payer (Ef fective 2025-Present) Name:Erika Lombardi Member ID:[id number] Relation to Subscriber:Self Name:LuverneErika fleming Subscriber ID:[id number] Payer ID:[id number] Group ID:Not on file Type:Medicare Address: [employer] [address] [employer] PREFERRED HMO REPLACEMENT MEDICARE PART A & B [employer] REPLACEMENT MEDICARE PART A & B [employer] REPLACEMENT MEDICARE PART A & [place] [address] [place] [address] MEDICARE PREFERRED HMO REPLACEMENT MEDICARE PART A & B [employer] REPLACEMENT MEDICARE PART A & B Care Teams Coal Miner Relationship Specialty Start Date End Date Adebayo Chacko DO [address] [place] [id number] [email or web address] PCP - General Internal Medicine 02/23/25 Additional Source Comments The information contained in this document represents components of the legal health record. It is not the complete legal health record.[facility]
--- OUTSIDE RECORDS SUMMARY | 2025-03-15 19:27 | XMS_ITS | Encounter Summary ---
Author Organization [facility] Address [address] [place] [id number] Phone Care Team Providers Care Drywall Hanger Framer Name Role Phone Adebayo Chacko DO Primary Care Provider [phone] Encounter Details Date Type Department Care Team (Latest Contact Info) Description 02/21/2025 Transcribe Orders Virtual Department [address] [place] [address] Chelle Hurtado PA [address] [facility] [address] [place] [address] Postmenopausal bleeding (Primary Dx) Social History Tobacco [...] to endometrial hyperplasia, submucosal fibroid, or malignancy. RESIDENTIAL THERAPIST consultation recommended for consideration of biopsy. 2. Nonvisualization of the ovaries. Narrative 02/28/2025 3:27 PM EDT US PELVIS TRANSABDOMINAL AND TRANSVAGINAL Referring clinician's provided indication for this examination in [facility]: Outside Radiology Order; postmenopausal bleeding TECHNIQUE: Pelvic [...] clinician's provided indication for this examination in [facility]:Outside Radiology Order; postmenopausal bleeding TECHNIQUE: Pelvic Ultrasound [...] due to endometrial hyperplasia, submucosal fibroid,or malignancy. RESIDENTIAL THERAPIST consultation recommended for consideration of biopsy. 2. Nonvisualization of the ovaries. us Chelle VELASQUEZ IMG US PELVIS Final Resul t documented in this encounter Visit Diagnoses Diagnosis Postmenopausal bleeding- Primary Postmenopausal bleeding documented in this encounter Care Teams Drywall Hanger Framer Relationship Specialty Start Date End Date Adebayo Chacko DO [address] [place] [address] [email or web address] PCP - General Internal Medicine 02/23/25 documented as of this encounter Additional Source Comments The information contained in this document represents components of the legal health record. It is not the complete legal health record.[facility]
--- NOTE | 2025-03-19 11:52 | HO.ANESPROP2 ---
Documented by User: Mony Patterson NP 03/19/25 11:52 HPI - Anesthesia Eval Consult details Narrative: 74yo F for D&C Hysteroscopy,possible myomectomy,possible possible polypectomy PMFSH Active Problems Active Problems: All Active Problems History of laparoscopy (Acute) History of oophorectomy, unilateral (Acute) Postmenopausal bleeding (Acute) Past Medical History Medical History Mitral regurgitation Osteopenia Depression Asthma Family History Family History Mother HTN (hypertension) Rheumatoid arteritis Father HTN (hypertension) High cholesterol Surgical History Surgical History H/O colonoscopy Hx of cholecystectomy History of oophorectomy, unilateral History of laparoscopy Social History Social History Household Members: Spouse and Children Housing: House Alcohol intake: never Patient Tobacco Use Status: Never used Tobacco Use of substances other than those prescribed or required for medical reasons: No Are you DNR?: No Advance Directives: No Advance Directives Information Provided: Yes Current occupational status: retired Sexual orientation: Straight/Heterosexual Gender identity: Female Meds Allergies Allergy/AdvReac Type Severity Reaction Status Date / Time Sulfa (Sulfonamide Allergy Intermediate Hives Verified 03/20/25 13:20 Antibiotics) Home Medications ?Medication ?Instructions ?Recorded ?Confirmed ?Last Taken ?Type albuterol sulfate 90 mcg/actuation 2 puff inhalation Q6H PRN 03/14/25 03/20/25 Unknown History aerosol inhaler (Ventolin HFA) Shortness Of Breath Or Wheezing duloxetine 20 mg capsule,delayed 20 mg PO DAILY 03/14/25 03/20/25 Unknown History release progesterone micronized 100 mg 100 mg PO QAM 03/14/25 03/20/25 Unknown History capsule lorazepam 0.5 mg tablet 0.5 mg PO BID PRN Insomnia 03/20/25 03/20/25 Unknown History Exam Pertinent Lab Results Pertinent Lab Results: Laboratory Tests 02/23/25 13:48 WBC 7.0 RBC 4.40 Hgb 13.5 Hct 39.6 Plt Count 302 Assessment and Plan Assessment Anesthesia Assessment: Chart Reviewed Documented by User: Alejandro Stevens MD 03/20/25 16:00 PMFSH Past Medical History Medical History Mitral regurgitation Osteopenia Depression Asthma Functional capacity: independent ambulation Family History Family History Mother HTN (hypertension) Rheumatoid arteritis Father HTN (hypertension) High cholesterol Family history of problems with anesthesia: No Surgical History Surgical History H/O colonoscopy Hx of cholecystectomy History of oophorectomy, unilateral History of laparoscopy History of Problems with Anesthesia: No Social History Social History Household Members: Spouse and Children Housing: House Alcohol intake: never Patient Tobacco Use Status: Never used Tobacco Use of substances other than those prescribed or required for medical reasons: No Are you DNR?: No Advance Directives: No Advance Directives Information Provided: Yes Current occupational status: retired Sexual orientation: Straight/Heterosexual Gender identity: Female Meds Allergies Allergy/AdvReac Type Severity Reaction Status Date / Time Sulfa (Sulfonamide Allergy Intermediate Hives Verified 03/20/25 13:20 Antibiotics) Home Medications ?Medication ?Instructions ?Recorded ?Confirmed ?Last Taken ?Type albuterol sulfate 90 mcg/actuation 2 puff inhalation Q6H PRN 03/14/25 03/20/25 Unknown History aerosol inhaler (Ventolin HFA) Shortness Of Breath Or Wheezing duloxetine 20 mg capsule,delayed 20 mg PO DAILY 03/14/25 03/20/25 Unknown History release progesterone micronized 100 mg 100 mg PO QAM 03/14/25 03/20/25 Unknown History capsule lorazepam 0.5 mg tablet 0.5 mg PO BID PRN Insomnia 03/20/25 03/20/25 Unknown History Exam Exam Date and Time: 03/20/2025 Airway TM Dist: <=3cm Neck ROM: Full Heart: rrr Lungs: cta Other: normal Assessment and Plan Assessment Anesthesia Assessment: Anesthesia Plan Discussed Final Anesthetic Review Family History of Problems with Anesthesia: No History of Problems with Anesthesia: No NPO: Yes ASA Class: II Final Preanesthetic Review: No Changes in Pt Med Stat, Meds/Allgs Chart Reviewed, Consent Obtained/Reviewed and Anes Risks/Benef Reviewed Patient Risk: Intermediate Procedure Risk: Intermediate Anesthetic Plan Anesthetic Plan: MAC: Disposition: Standard PACU
[2025-03-20] VITALS (19 sets, daily range): BP systolic 95–150; BP diastolic 44–67; PULSE 45–102; RESP 14–23; TEMP 36.4–37.2; O2SAT 90–98; BMI 25.7
--- NOTE | 2025-03-20 | ECG_ITS ---
Test Reason : pulmonary edema Blood Pressure : */* mmHG Vent. Rate : 52 BPM Atrial Rate : 52 BPM P-R Int : 160 ms QRS Dur : 80 ms QT Int : 492 ms P-R-T Axes : 67 53 60 degrees QTcB Int : 457 ms Sinus bradycardia with Premature atrial complexes Otherwise normal ECG No previous ECGs available Referred By: Paolo Simon Electronically Signed By: KELLI DOWNS
--- NOTE | ~2025-03-20 | XR_ITS ---
CLINICAL HISTORY: intubation 1 view chest x-ray Comparison: None provided Findings: There is diffuse pulmonary vascular prominence. No effusion or pneumothorax. The tip of the endotracheal tube is 4.2 cm above the rivas. Heart size is normal. No acute fracture. IMPRESSION: Diffuse pulmonary vascular prominence suggesting vascular congestion. This document has been electronically signed by: Norberto Balderrama MD on 03/20/2025 22:03:09
[2025-03-20] MEDS: Lactated Ringers 1,000 ML 100 ML IVCONT ×2 (13:39→17:06)
--- NOTE | 2025-03-20 14:32 | MHC.SHP ---
Pre-Procedural Eval Section A - 24 Hr Update-Section A only Date of Service: 03/20/25 The patient is an INPATIENT: No Changes since office visit: No Cold of Flu in the past 2 weeks, No New Medical Problems, No Changes in Medication and No Patient answered all questions The patient has been examined within 24 hours of the surgical procedure. The History & Physical has been completed within 30 days and I have reviewed it.: Yes Section B - Complete if H&P > 30 days Chief Complaint: Postmenopausal bleeding Allergies: Allergies Allergy/AdvReac Type Severity Reaction Status Date / Time Sulfa (Sulfonamide Allergy Intermediate Hives Verified 03/20/25 13:20 Antibiotics) Plan Diagnosis/Plan: Unchanged I have reviewed the history and physical and performed a pertinent physical examination on my patient. No changes have occurred unless specified. Time Spent With Patient Time: Total time managing care of this patient today ____ minutes.
--- NOTE | 2025-03-20 15:14 | P.OP_ITS ---
Operative Note Operative Note Date of Service: 03/20/25 Narrative: Preop Diagnosis: Postmenopausal bleeding, thickened endometrium by US Operation: Diagnostic Hysteroscopy, Dilataion & Curettage and polypectomy Post Op Diagnosis: Endometrial Polyp QBL: Minimal Anesthesia: GLMA Surgeon: Ziyad Medeiros MD Director Of Program Management: None Fluid deficit: 100 cc Complication: None Pathology: Endometrial Scrapings, Endometrial polyp Procedure: The patient was put in the dorsal lithotomy position, scrubbed, and draped in the usual manner. A sterile speculum was inserted in the patient's vagina. The anterior lip of the cervix was grasped with a single tooth tenaculum. The cervix was dilated up to 5 mm, then the scope was inserted in the patient's uterus. Inspection revealed endometrial polyp. The Myosure Reach device was used; it was introduced through the operative channel and polypectomy done with no complications. The scope was then taken out from the uterine cavity, sharp curettings was carried on with minimal to moderate amount of tissues retrieved. At the end of the procedure, all instruments were taken out of the patient uterine and vaginal cavity. The single tooth tenaculum was removed and homeostasis was assured using pressure,. The patient tolerated the procedure well and was transferred to the PACU in a stable condition.
--- NOTE | 2025-03-20 15:14 | PM.OP ---
Brief Operative Note Date of Service: 03/20/25 Pre-op diagnosis: Postmenopausal bleeding, thickened endometrium by ultrasound Post-op diagnosis: same (Endometrial polyp) Procedure: Hysteroscopy D&C, Polypectomy Surgeon: Ziyad Medeiros MD Anesthesia: GLMA Was an Field Human Resources Manager used for this Procedure?: No Estimated blood loss (mL): 0 Pathology: other (Endometrial Scrapping. Polyp) Condition: stable Disposition: PACU
--- NOTE | 2025-03-20 16:36 | PM.EVENT ---
Event Note Date of Service: 03/20/25 Event Note: After the procedure concluded, anesthesia had difficulty extubating the patient, decision was made to ICU Discuss clinical situation with the patient's Time Spent With Patient Time: Total time managing care of this patient today ____ minutes.
[2025-03-20] MEDS: fentaNYL citrate/NS 1,000 MCG/100 ML PLAST..BAG 2.5 MCG IVCONT (16:50)
--- NOTE | 2025-03-20 17:22 | PHA.MEDREC ---
Pharmacy Consult ? Medication Reconciliation Pharmacy has the medication reconciliation.
--- NOTE | 2025-03-20 17:23 | PHA.MEDREC ---
Addendum entered by Leonidas Patel [facility] 03/20/25 17:27: Med rec reviewed Original Note: Pharmacy Consult ? Medication Reconciliation Pharmacy has reviewed the medication reconciliation done by nursing. Claims match med list. Patient is no longer on Estradiol 0.025 mg patch per Visit note from 03/14/25
--- NOTE | 2025-03-20 17:27 | P.HPCC_ITS ---
History of Present Illness Date of Service: 03/20/25 Chief Complaint: Shortness of breath History is limited as patient is intubated and is a very poor historian 74-year-old lady with past medical history of anxiety on small dose of Ativan, asthma using inhalers once in a while has been having postmenopausal bleeding for which she underwent a elective hysteroscopy this afternoon to look for polyps. During the procedure patient became hypoxic, also had excessive thin brown secretions coming out for which she had to be intubated and placed on ventilator support. Postsurgery patient is being transferred to medical ICU for further management. Review of Systems 2 Review of Systems: Unable to obtain as patient is intubated [facility] Past Medical History Medical History Mitral regurgitation Osteopenia Depression Asthma Family History Family History Mother HTN (hypertension) Rheumatoid arteritis Father HTN (hypertension) High cholesterol Surgical History Surgical History H/O colonoscopy Hx of cholecystectomy History of oophorectomy, unilateral History of laparoscopy Social History Social History Household Members: Unknown / Unable to assess Housing: Unknown / Unable to assess Alcohol intake: never Patient Tobacco Use Status: Tobacco use Unknown Use of substances other than those prescribed or required for medical reasons: No Spiritual Healthcare Practices: unable to respond Baptism Healthcare Practices: unable to respond Cultural Healthcare Practices: unable to respond Are you DNR?: No Advance Directives: No Advance Directives Information Provided: Yes Nutrition Risks: On aspiration precautions Patient : No Poor oral hygiene: No Current occupational status: retired Sexual orientation: Straight/Heterosexual Gender identity: Female Meds Allergies Allergy/AdvReac Type Severity Reaction Status Date / Time Sulfa (Sulfonamide Allergy Intermediate Hives Verified 03/20/25 13:20 Antibiotics) Active Medications: Current Medications Acetaminophen (Acetaminophen Supp 650 Mg Supp.Rect) 650 mg CO Q6H PRN PRN Reason: Fever >100.4 Albuterol Sulfate (Albuterol Sulfate (0.083%) 2.5 Mg/3 Ml Vial.Neb) 2.5 mg INHALE ONCE PRN PRN Reason: Shortness of Breath/Wheezing Albuterol/Ipratropium (Albuterol/Iprat 2.5/0.5mg 3 Ml Ampul.Neb) 3 ml INHALE RQ4H KAYLEE Famotidine (Famotidine/Pf 20 Mg/2 Ml Vial) 20 mg IVPUSH BID REPLACED BY [facility] Lactated Ringer's (Lr) 1,000 mls @ 100 mls/hr IVCONT .Q10H KAYLEE Last Admin: 03/20/25 17:06 Dose: 100 mls/hr Fentanyl (Sublimaze/Ns) 1,000 mcg in 100 mls @ 5 mls/hr IVCONT .Q20H KAYLEE; Protocol Last Admin: 03/20/25 16:50 Dose: 25 mcg/hr, 2.5 mls/hr Furosemide 200 mg/ Sodium (Chloride) 100 mls @ 5 mls/hr IVCONT .Q20H KAYLEE Piperacillin Sod/Tazobactam (Sod 4.5 gm/ Sodium Chloride) 100 mls @ 200 mls/hr IV Q6H REPLACED BY [facility] Last Admin: 03/20/25 17:01 Dose: 200 mls/hr Propofol (Diprivan) 1,000 mg in 100 mls @ 0 mls/hr IVCONT .Q0M REPLACED BY [facility]; Protocol Last Titration: 03/20/25 16:45 Dose: 50 mcg/kg/min, 20.41 mls/hr Naloxone HCl (Naloxone Hcl 0.4 Mg/Ml Vial) 0.2 mg IVPUSH Q2M PRN PRN Reason: Excessive sedation or RR < 8 Home Medications ?Medication ?Instructions ?Recorded ?Confirmed ?Last Taken ?Type albuterol sulfate 90 mcg/actuation 2 puff inhalation Q 6H PRN 03/14/25 03/20/25 Unknown History aerosol inhaler (Ventolin HFA) Shortness Of Breath Or Wheezing duloxetine 20 mg capsule,delayed 20 mg PO DAILY 03/20/25 Unknown History release progesterone micronized 100 mg 100 mg PO QAM 03/14/25 03/20/25 Unknown History capsule alprazolam 0.5 mg tablet 0.5 mg PO BID PRN Anxiety 03/20/25 Unknown History Physical Exam 2 Vital Signs: Vital Signs: Last Vital Signs Temp 98.9 F 03/20/25 13:30 Pulse 57 03/20/25 17:09 Resp 15 03/20/25 17:09 BP 117/48 L 03/20/25 17:09 Pulse Ox 96 03/20/25 17:09 O2 Del Method Mechanical Ventil ation 03/20/25 17:09 FiO2 60 03/20/25 16:45 BMI result Body Mass Index 25.7 General: Elderly lady in acute distress, ill appearing and tired appearing Nutritional Appearance: well nourished and overweight Eyes: appearance normal, both eyes and all related structures; Alignment and Position: alignment normal and position normal Neck: No lymphadenopathy, no thyromegaly Resp: bilateral air entry equal, occasional added sounds present Cardio: Regular rate, regular rhythm; Heart sounds: S1 normal heart sound present and S2 normal heart sound present GI: soft, nontender, no guarding, no hepatosplenomegaly : bladder normal to inspection, bladder normal to palpation, no renal angle tenderness Skin: no rashes or lesions noted and elasticity normal Neuro: No focal deficits, sedated Results Labs 03/20/25 17:18 03/20/25 17:18 Assessment and Plan (1) Acute hypoxemic respiratory failure: Status: Acute (2) Acute encephalopathy: Status: Acute (3) Pulmonary edema: Status: Acute Plan Neuro: Acute encephalopathy possibly due to metabolic encephalopathy from sedation and anesthesia Currently on propofol for sedation, fentanyl for analgesia We will add oral low-dose Ativan as she is on some at home Close neurological status monitoring in the ICU every hour Cardiac: Possible pulmonary edema: We will get transthoracic echocardiogram We will start her on a Lasix drip Respiratory: Acute hypoxemic respiratory failure due to pulmonary edema Currently on ventilator support On PRVC mode FiO2 40%, PEEP 5, TV 360, RR 20 Peak pressures and plateau pressures are under the curve Ventilator management bundle with head end elevation, aspiration precaution, chlorhexidine mouthwash, daily awakening trials, daily spontaneous breathing trials GI: We will start on tube feeds tomorrow if she is not extubated Renal: We will get renal function tests Heme: Chronic anemia, closely monitor H&H, transfuse for hemoglobin less than 7 grams/deciliter Endocrine: Blood sugars under control Sliding scale insulin as needed Infectious disease: We will send pancultures Musculoskeletal: Decubitus ulcer prevention protocol Lines: Peripheral Prophylaxis: SCD, we will hold off on anticoagulation due to bleeding, famotidine Total critical care time spent is about 45 minutes on evaluation and admission of this critically ill patient to medical ICU, formulating critical care plan and management, chart review, review of labs and images, ventilator management, sedation management, close hemodynamic monitoring at this time is excluding any procedural time.
[2025-03-20 17:33] LABS: Hematocrit 41.1 % (37.0-47.0); Hemoglobin 13.7 g/dl (12.0-16.0); Imm Gran Abs Auto 0.12 X10*3/uL (0.00-0.03); Imm Gran Pct Auto 1.0 % (0.0-0.4); Lymphocytes Absolute Auto 0.7 X10*3/uL (1.2-4.9); MANUAL DIFF FLAG SCAN; Mean Corpuscular HGB Conc 33.3 g/dl (31.0-35.0); Mean Corpuscular Hemoglobin 30.8 pg (27.0-33.0); Mean Corpuscular Volume 92.4 fL (80.0-98.0); NRBC Abs Auto 0.000 X10*3/uL (0.0-0.012); NRBC Pct Auto 0.0 /100WBC (0.0-0.2); Platelet Count 215 X10*3/uL (160-400); Red Blood Count 4.45 X10*6/uL (4.20-5.50); SCAN SMEAR FLAG 1; White Blood Count 11.9 X10*3/uL (4.8-10.8)
--- NOTE | 2025-03-20 17:40 | PC.NURSE ---
Addendum entered by Connie Thomas RN 03/20/25 18:30: MAP maintaining <65 - levophed gtt ordered and titrated per MAR. HR maintaining mid 40's, sinus - MD aware. Original Note: Patient arrived to unit via stretcher from OR1 at 1628 - pt intubated, started on propofol gtt & fentanyl gtt for sedation - suctioning pink frothy sputum inline, ls dim throughout - multiple prn angios obtained - abx, LR & lasix gtt ordered per EMAR. SB HR maintaining 50's, MAP maintaining >65, no edema. NPO, abd soft, round, unknown last BM. Purawich in place, no urine output at this time. Skin warm, dry, pink, no skin integrity concerns. Partial bath given, hover zoraida and specilty bed in place. Family at bedside and updated by MD. Care ongoing.
[2025-03-20 17:42] LABS: Alanine Aminotransferase 21 U/L (0-31); Albumin Level 4.1 g/dL (3.5-5.0); Alkaline Phosphatase 74 U/L (39-117); Anion Gap 14 (12-20); Aspartate Amino Transferase 30 U/L (5-31); Blood Urea Nitrogen 14 mg/dL (9-16); Calcium 8.9 mg/dL (8.4-10.2); Carbon Dioxide 23 mmol/L (22-29); Chloride 108 mmol/L (96-108); Creatinine Clr Calc Pharmacy 74.3; Estimated Glomerular Filt Rate > 60; Magnesium 2.2 mg/dL (1.6-2.6); Potassium 3.9 mmol/L (3.3-5.1); Sodium 141 mmol/L (135-145); Total Protein 6.9 g/dL (6.5-8.0)
[2025-03-20 17:50] LABS: NT Pro B Type Natriuretic Pept 134.9 pg/mL (<300)
[2025-03-20] MEDS: Furosemide 200 MG in 0.9 % Sodium Chloride 80 ML IVCONT (18:13)
[2025-03-20] MEDS: Albuterol/Iprat 2.5/0.5MG 3 ML AMPUL.NEB INHALE ×2 (19:50→23:13)
[2025-03-20 23:29] LABS: Alanine Aminotransferase 28 U/L (0-31); Albumin Level 4.3 g/dL (3.5-5.0); Alkaline Phosphatase 73 U/L (39-117); Anion Gap 16 (12-20); Aspartate Amino Transferase 31 U/L (5-31); Blood Urea Nitrogen 14 mg/dL (9-16); Calcium 8.8 mg/dL (8.4-10.2); Carbon Dioxide 27 mmol/L (22-29); Chloride 102 mmol/L (96-108); Creatinine Clr Calc Pharmacy 58.3; Estimated Glomerular Filt Rate > 60; Potassium 3.4 mmol/L (3.3-5.1); Sodium 142 mmol/L (135-145); Total Protein 7.0 g/dL (6.5-8.0)
[2025-03-20] MEDS: Chlorhexidine Gluc Oral Rinse 15 ML MOUTHWASH BUCCAL (23:58)
[2025-03-21] VITALS (34 sets, daily range): BP systolic 106–137; BP diastolic 32–98; PULSE 54–97; RESP 13–22; TEMP 34–37.2; O2SAT 2–95; BMI 25.1
[2025-03-21] MEDS: Albuterol/Iprat 2.5/0.5MG 3 ML AMPUL.NEB INHALE ×4 (03:39→15:14)
[2025-03-21 05:04] LABS: VBG HCO3 25 mmol/L (22-26); VBG O2 % Saturation 90.0 %
[2025-03-21 05:10] LABS: Hematocrit 38.4 % (37.0-47.0); Hemoglobin 13.1 g/dl (12.0-16.0); Imm Gran Abs Auto 0.14 X10*3/uL (0.00-0.03); Imm Gran Pct Auto 0.6 % (0.0-0.4); Lymphocytes Absolute Auto 0.5 X10*3/uL (1.2-4.9); MANUAL DIFF FLAG SCAN; Mean Corpuscular HGB Conc 34.1 g/dl (31.0-35.0); Mean Corpuscular Hemoglobin 31.1 pg (27.0-33.0); Mean Corpuscular Volume 91.2 fL (80.0-98.0); NRBC Abs Auto 0.000 X10*3/uL (0.0-0.012); NRBC Pct Auto 0.0 /100WBC (0.0-0.2); Platelet Count 284 X10*3/uL (160-400); Red Blood Count 4.21 X10*6/uL (4.20-5.50); SCAN SMEAR FLAG 1; White Blood Count 24.4 X10*3/uL (4.8-10.8)
[2025-03-21 05:29] LABS: Alanine Aminotransferase 27 U/L (0-31); Albumin Level 4.1 g/dL (3.5-5.0); Alkaline Phosphatase 71 U/L (39-117); Anion Gap 21 (12-20); Aspartate Amino Transferase 30 U/L (5-31); Blood Urea Nitrogen 16 mg/dL (9-16); Calcium 8.1 mg/dL (8.4-10.2); Carbon Dioxide 23 mmol/L (22-29); Chloride 101 mmol/L (96-108); Creatinine Clr Calc Pharmacy 35.7; Estimated Glomerular Filt Rate 40; Magnesium 2.0 mg/dL (1.6-2.6); Potassium 3.4 mmol/L (3.3-5.1); Sodium 142 mmol/L (135-145); Total Protein 6.9 g/dL (6.5-8.0)
[2025-03-21 05:31] LABS: Venous Blood Gas Refer to POC result
[2025-03-21] MEDS: fentaNYL citrate/NS 1,000 MCG/100 ML PLAST..BAG 2.5 MCG IVCONT (06:27)
--- NOTE | 2025-03-21 07:00 | CA_ITS ---
Transthoracic Echocardiogram Patient (Last, First, Middle): Erika Lombardi, Gender: Female Date of : 1950 Age: 74 Procedure Date: 03/21/2025 Procedure Type: Transthoracic Echocardiogram Location: OP Height: 162.56 cm Weight: 66.23 kg BSA: 1.71 m2 Heart Rate: 93 bpm BP: 136 / [address] Judge: TO Referring MD: Paolo Simon MD Symptoms: pulmonary edema Study Quality: Adequate ECG Rhythm: Sinus Conclusions: - The left ventricular systolic function is normal. The calculated ejection fraction is 67% by biplane method. - No obvious valvular pathology seen on this study. Findings Left Ventricle Normal left ventricular cavity size. There is normal left ventricular wall thickness. The left ventricular systolic function is normal. The calculated ejection fraction is 67% by biplane method. There is no evidence of regional wall motion abnormalities. Diastolic function is normal for age. Right Ventricle Normal right ventricular cavity size and systolic function. Atria Both atria are normal in size. Aortic Valve There is a normal trileaflet aortic valve. There is no aortic valve stenosis. There is no aortic valve regurgitation. Mitral Valve The mitral valve appears normal. There is trace mitral valve regurgitation. There is no mitral valve stenosis. Pulmonic Valve The pulmonic valve is likely normal. Tricuspid Valve There is trace tricuspid valve regurgitation. There is no evidence of pulmonary hypertension. Great Vessels The asc aorta is normal in size. Venous The inferior vena cava is normal in size and collapses greater than 50% with inspiration. Pericardium/Pleural There is no evidence of pericardial effusion. Prior Study Comparison No prior study available for comparison. Recommendations, Care & Conclusions No obvious valvular pathology seen on this study. Measurements 2D Linear Measurements IVSd: 0.81 0.6-0.9/0.6-1.0 cm LVIDd: 4.61 3.9-5.3/4.2-5.9 cm LVIDd Index: 2.70 2.4-3.2/2.2-3.1 cm/m2 LVIDs: 3.33 2.0-3.6 cm LVPWd: 0.65 0.7-1.1 cm LA Diam: 3.10 2.7-3.8/3.0-4.0 cm LAIDs Index: 1.81 1.5-2.3 cm/m2 LV Mass: 129.67 67-162/88-224 g LV Mass Index: 75.83 43-95/49-115 g/m2 LVOT Diam: 2.10 3.0+(-)1.3 cm 2D Systolic Function EF 4C: 64.80 >55% EF 2C: 68.80 >55% EF BiP: 67.20 >55% Mitral Valve MV Pk E: 0.71 MV PK A: 0.67 MV Decel Time: 247.00 E/A: 1.10 E'Lateral: 10.00 E'Medial: 7.18 E/E' Med: 9.90 E/E' Lat: 7.10 PHT: 72.00 MVA PHT: 3.06 Decel Schoolcraft: 2.87 Aortic Valve AoV Pk Jason: 1.41 AoV Pk Grad: 8.00 EDY: 3.12 LVOT LVOT Pk Jason: 1.27 LVOT Mn Jason: 0.87 LVOT VTI: 0.21 LVOT Pk Grad: 6.00 LVOT Mn Grad: 4.00 LVOT Diam: 2.10 LVOT Area: 3.46 Diastolic Function MV Pk E: 0.71 MV Pk A: 0.67 E/A: 1.10 E'Medial: 7.18 E/E' Med: 9.90 E' Laterial: 10.00 E/E' Lat: 7.10 Right Ventricle TAPSE (mm): 24.00 TVS' Jason: 12.20 Tricuspid Valve TR Pk Jason: 2.21 TR Pk Grad: 20.00 RA Press: 3.00 RVSP: 23.00 Great Vessels Aorta Sinus of Valsalva: 3.29 2.0-3.5 cm Ao Asc: 2.80 2.1-3.4 cm Updated in Other Vendor System with Status of Final Víctor Lanza MD electronically signed on 03/22/2025 11:50:53 AM with status of Final
--- NOTE | 2025-03-21 08:41 | P.PNCC_ITS ---
Subjective Subjective Date of Service: 03/21/25 Interval History: Continues to be on ventilator support, absent cough leak we will remain intubated Critical Care Time (minutes): 35 Physical Exam 2 Vital Signs: Vital Signs: Last Vital Signs Temp 97.7 F 03/21/25 08:00 Pulse 97 03/21/25 08:00 Resp 20 03/21/25 08:00 BP 116/98 H 03/21/25 08:00 Pulse Ox 93 03/21/25 08:00 O2 Del Method Mechanical Ventil ation 03/21/25 06:00 O2 Flow Rate 30 03/21/25 07:00 FiO2 21 03/21/25 08:12 BMI result Body Mass Index 25.1 General: Elderly lady in acute distress, ill appearing and tired appearing Nutritional Appearance: well nourished and overweight Eyes: appearance normal, both eyes and all related structures; Alignment and Position: alignment normal and position normal Neck: No lymphadenopathy, no thyromegaly Resp: bilateral air entry equal, bilateral crackles heard Cardio: Regular rate, regular rhythm; Heart sounds: S1 normal heart sound present and S2 normal heart sound present GI: soft, nontender, no guarding, no hepatosplenomegaly : bladder normal to inspection, bladder normal to palpation, no renal angle tenderness Skin: no rashes or lesions noted and elasticity normal Neuro: while awake moves all extremities Objective Data Labs 03/21/25 04:57 03/21/25 04:57 Labs: Laboratory Results - last 24 hr 03/20/25 03/20/25 03/21/25 17:18 23:08 04:57 WBC 11.9 H 24.4 H RBC 4.45 4.21 Hgb 13.7 13.1 Hct 41.1 38.4 MCV 92.4 91.2 MCH 30.8 31.1 MCHC 33.3 34.1 RDW 12.4 12.4 Plt Count 215 D 284 D MPV 9.3 L 9.1 L Immature Gran % (Auto) 1.0 H 0.6 H Neut % (Auto) 90.9 H 94.1 H Lymph % (Auto) 5.7 L 1.9 L [place] % (Auto) 1.6 L 3.2 Eos % (Auto) 0.5 0.0 Baso % (Auto) 0.3 0.2 Lymph # (Auto) 0.7 L 0.5 L [place] # (Auto) 0.2 0.8 Eos # (Auto) 0.1 0.0 Baso # (Auto) 0.0 0.0 Abs Immat Gran (auto) 0.12 H 0.14 H Absolute Neuts (auto) 10.8 H 23.0 H Absolute Nucleated RBC 0.000 0.000 Nucleated RBC % (auto) 0.0 0.0 Smear Tech's Comments VERIFIED VERIFIED VBG pH VBG pCO2 VBG pO2 VBG HCO3 VBG O2 Saturation VBG Base Excess Sodium 141 142 142 Potassium 3.9 3.4 3.4 Chloride 108 102 101 Carbon Dioxide 23 27 23 Anion Gap 14 16 21 H BUN 14 14 16 Creatinine 0.62 0.79 1.29 Estim Creat Clear Calc 74.3 58.3 35.7 Estimated GFR > 60 > 60 40 Random Glucose 125 H 232 H 319 H Calcium 8.9 8.8 8.1 L D Phosphorus 3.8 3.7 Magnesium 2.2 2.0 Total Bilirubin 0.3 0.4 0.5 AST 30 31 30 ALT 21 28 27 Alkaline Phosphatase 74 73 71 NT-Pro-B Natriuret Pep 134.9 Total Protein 6.9 7.0 6.9 Albumin 4.1 4.3 4.1 03/21/25 05:00 WBC RBC Hgb Hct MCV MCH MCHC RDW Plt Count MPV Immature Gran % (Auto) Neut % (Auto) Lymph % (Auto) [place] % (Auto) Eos % (Auto) Baso % (Auto) Lymph # (Auto) [place] # (Auto) Eos # (Auto) Baso # (Auto) Abs Immat Gran (auto) Absolute Neuts (auto) Absolute Nucleated RBC Nucleated RBC % (auto) Smear Tech's Comments VBG pH 7.33 VBG pCO2 47 VBG pO2 63 VBG HCO3 25 VBG O2 Saturation 90.0 VBG Base Excess -1.2 Sodium Potassium Chloride Carbon Dioxide Anion Gap BUN Creatinine Estim Creat Clear Calc Estimated GFR Random Glucose Calcium Phosphorus Magnesium Total Bilirubin AST ALT Alkaline Phosphatase NT-Pro-B Natriuret Pep Total Protein Albumin Progress Note: A&P Assessment and plan (1) Acute encephalopathy: Status: Acute (2) Acute hypoxemic respiratory failure: Status: Acute (3) Pulmonary edema: Status: Acute (4) Acute kidney injury: Status: Acute Plan Neuro: Acute encephalopathy possibly due to metabolic encephalopathy from sedation and anesthesia Currently on propofol for sedation, fentanyl for analgesia We will add oral low-dose Ativan as she is on some at home Close neurological status monitoring in the ICU every hour Cardiac: Cardiogenic shock: Secondary to positive pressure ventilation On Levophed for vasopressor support titrate to keep map above 65 mm Hg We will get transthoracic echo On Lasix drip without much urine output, we will increase the rate to 15mg/hr and add chlorthalidone We will do a bedside echo to evaluate the volume status Respiratory: Acute hypoxemic respiratory failure due to pulmonary edema Currently on ventilator support On PRVC mode FiO2 40%, PEEP 5, TV 360, RR 20 Peak pressures and plateau pressures are under the curve Ventilator management bundle with head end elevation, aspiration precaution, chlorhexidine mouthwash, daily awakening trials, daily spontaneous breathing trials GI: We will start on tube feeds Renal: Acute kidney injury: Baseline creatinine around 0.7, today creatinine increased to 1.2 Possibly secondary to hemodynamic changes We will closely monitor I&Os, continue diuresis with Lasix drip Avoid nephrotoxic medications including contrast Heme: Chronic anemia, closely monitor H&H, transfuse for hemoglobin less than 7 grams/deciliter Endocrine: Blood sugars under control Sliding scale insulin as needed Infectious disease: Pending pancultures On empiric Zosyn Musculoskeletal: Decubitus ulcer prevention protocol Lines: Peripheral Prophylaxis: SCD, we will hold off on anticoagulation due to bleeding, famotidine Hypotension is secondary to positive pressure ventilation and sedation, no concerns for sepsis patient was admitted for elective hysteroscopy and developed pulmonary edema during the procedure and intubated. Quality Stroke Does the patient have a stroke diagnosis?: No VTE Prior VTE?: No VTE Risk Level:: Medical - low VTE Device Contraindication: N/A - Device Ordered VTE Drug Contraindication: Treatment Not Tolerated
[2025-03-21] MEDS: Chlorhexidine Gluc Oral Rinse 15 ML MOUTHWASH BUCCAL (09:29)
--- NOTE | 2025-03-21 09:46 | HO.POSTANES ---
Post Anesthesia Evaluation Post Anesthesia Evaluation Date of Service: 03/21/25 Vital Signs: Vital Signs Temp Pulse Resp BP Pulse Ox O2 Del Method O2 Flow Rate 03/21/25 09:00 98.1 F 87 18 129/54 L 91 L Room Air 03/21/25 08:12 03/21/25 08:00 93 03/21/25 08:00 97.7 F 97 20 116/98 H 03/21/25 07:38 61 14 03/21/25 07:38 03/21/25 07:30 61 116/48 L 03/21/25 07:00 97.2 F 64 14 112/42 L 94 30 03/21/25 06:25 71 137/46 L 03/21/25 06:00 97.0 F 68 13 134/51 L 94 Mechanical Ventilation 03/21/25 05:00 97.0 F 66 14 111/47 L 93 Mechanical Ventilation 03/21/25 04:04 67 112/43 L 03/21/25 04:00 94 03/21/25 03:59 97.0 F 69 14 111/42 L 94 Mechanical Ventilation 03/21/25 03:39 58 14 03/21/25 03:35 03/21/25 02:58 97.0 F 58 14 117/45 L 94 Mechanical Ventilation 03/21/25 02:00 97.0 F 58 14 113/44 L 93 Mechanical Ventilation 03/21/25 01:00 97.0 F 54 14 124/47 L 94 Mechanical Ventilation 03/21/25 00:53 57 111/43 L 03/21/25 00:00 97.0 F 54 14 109/44 L 93 Mechanical Ventilation 03/20/25 23:36 94 03/20/25 23:13 48 L 14 03/20/25 23:13 03/20/25 23:00 49 L 14 130/55 L 96 Mechanical Ventilation 03/20/25 22:00 97.7 F 53 14 118/53 L 96 Mechanical Ventilation FiO2 03/21/25 09:00 30 03/21/25 08:12 21 03/21/25 08:00 21 03/21/25 08:00 03/21/25 07:38 03/21/25 07:38 21 03/21/25 07:30 03/21/25 07:00 03/21/25 06:25 03/21/25 06:00 30 03/21/25 05:00 30 03/21/25 04:04 03/21/25 04:00 30 03/21/25 03:59 30 03/21/25 03:39 03/21/25 03:35 30 03/21/25 02:58 30 03/21/25 02:00 30 03/21/25 01:00 30 03/21/25 00:53 03/21/25 00:00 30 03/20/25 23:36 30 03/20/25 23:13 03/20/25 23:13 30 03/20/25 23:00 30 03/20/25 22:00 30 Anesthesia: General Mental Status: Awake Pain Control: Satisfactory Nausea/Vomiting: None Hydration: Adequate Anesthesia-Related Issues: No Anes. Related Issues Comments: Dr. Peterson spoke with family member at bedside, discussed asthma attack, bronchospasm, and GERD that likely contributed to pt remaining intubated at this time
--- NOTE | 2025-03-21 10:18 | PC.RT ---
Pt trialed on PSV at 0815, tolerated well. Pt alert and awake, able to follow commands. Pt calm and comfortable. Pt did not have a cuff leak. Steroids ordered and leak rechecked, pt had a positive cuff leak. Pt was control extubated by RT per MD order. No stridor or respiratory distress noted. Pt on RA, SATs 94%, no respiratory distress. Pt able to voice adequately and has a strong productive cough. Will continue to monitor.
--- NOTE | 2025-03-21 11:20 | MHC.CM.PN ---
CM MET WITH PT AND FAMILY AT BEDSIDE IN ICU. PT IS EXTUBATED, ALERT AND ORIENTED, IN GOOD SPIRITS. PT IS FUNCTIONALLY INDEPENDENT AT BASELINE. + HCP (COPY AT HOME, NAMING SPOUSE NEIL) PCP DR. ALYSHA CHEN DP: HOME, NO SERVICES ANTICIPATED. PT'S FAMILY WILL TRANSPORT. CM WILL CONTINUE TO FOLLOW FOR ANY CHANGE TO DC PLAN/NEEDS.
--- NOTE | 2025-03-21 11:35 | MHC.CLN ---
PT IS INTUBATED AND SEDATED PT WITHOUT OG TUBE AT THIS TIME DISCUSSED AT ROUNDS WITH MD-PLAN TO REMAIN NPO FOR TODAY FOLLOWING FOR DIET ADVANCEMENT SEE FULL ASSESSMENT
[2025-03-21] MEDS: Furosemide 200 MG in 0.9 % Sodium Chloride 80 ML IVCONT (14:16)
--- NOTE | 2025-03-21 15:35 | PC.NURSE ---
Upon initial assessment pt sedated/intubated. Extubated approx 10:15.? Alert & oriented, On 2L NC, Sp02 low 90?s, Crackles BL bases. Levophed gtt & Laxis gtt titrated off per AUG.This am Pt complaining of burning sensation unable to void, Bladder scan for 875. Urine culture sent to the lab. Martines catheter inserted per? Dr. Simon?s orders for accurate I/O. Martines cath removed approx 1525, Due to void today @ 2130.? Plan transfer to med surg. Not requiring ICU level of care.?
[2025-03-22] VITALS (9 sets, daily range): BP systolic 101–144; BP diastolic 57–66; PULSE 70–101; RESP 16–18; TEMP 36.5–36.9; O2SAT 91–95
[2025-03-22 05:14] LABS: MANUAL DIFF FLAG NO
[2025-03-22 05:16] LABS: Venous Blood Gas Refer to POC result
[2025-03-22 05:19] LABS: Hematocrit 33.5 % (37.0-47.0); Hemoglobin 11.7 g/dl (12.0-16.0); Imm Gran Abs Auto 0.07 X10*3/uL (0.00-0.03); Imm Gran Pct Auto 0.4 % (0.0-0.4); Lymphocytes Absolute Auto 1.0 X10*3/uL (1.2-4.9); Mean Corpuscular HGB Conc 34.9 g/dl (31.0-35.0); Mean Corpuscular Hemoglobin 31.0 pg (27.0-33.0); Mean Corpuscular Volume 88.6 fL (80.0-98.0); NRBC Abs Auto 0.000 X10*3/uL (0.0-0.012); NRBC Pct Auto 0.0 /100WBC (0.0-0.2); Platelet Count 229 X10*3/uL (160-400); Red Blood Count 3.78 X10*6/uL (4.20-5.50); White Blood Count 16.1 X10*3/uL (4.8-10.8)
[2025-03-22 05:19] LABS: VBG HCO3 34 mmol/L (22-26); VBG O2 % Saturation 85.0 %
[2025-03-22 05:33] LABS: Alanine Aminotransferase 23 U/L (0-31); Albumin Level 3.9 g/dL (3.5-5.0); Alkaline Phosphatase 57 U/L (39-117); Anion Gap 14 (12-20); Aspartate Amino Transferase 28 U/L (5-31); Blood Urea Nitrogen 20 mg/dL (9-16); Calcium 8.2 mg/dL (8.4-10.2); Carbon Dioxide 33 mmol/L (22-29); Chloride 101 mmol/L (96-108); Creatinine Clr Calc Pharmacy 52.3; Estimated Glomerular Filt Rate > 60; Magnesium 2.2 mg/dL (1.6-2.6); Potassium 3.1 mmol/L (3.3-5.1); Sodium 145 mmol/L (135-145); Total Protein 6.6 g/dL (6.5-8.0)
[2025-03-22] MEDS: Albuterol/Iprat 2.5/0.5MG 3 ML AMPUL.NEB INHALE ×4 (07:54→20:36)
[2025-03-22] MEDS: Potassium Chloride/H20 10 MEQ/100 ML PIGGYBACK 100 MEQ IV ×2 (09:18→10:24)
--- NOTE | 2025-03-22 10:46 | P.PNIM_ITS ---
Subjective Subjective Date of Service: 03/22/25 Interval History: Persistent congested cough today. Endorses no difficulty with the breathing, however patient tachypneic by bedside. Orthopneic. No fevers chills or rigors. Feels much better as compared to yesterday Review of Systems Review of Systems: Yes all other systems are reviewed and are negative Physical Exam 2 Exam: Exam: General: A&O x3, oriented to time place person and situation, comfortable, no pain Cardiac: S1, S2 auscultated with no S3/4, no MRG. Well perfused. Respiratory: Congested breath sounds throughout all lung zones bilaterally, with crackles and crepitations auscultated to the mid zones bilaterally, and upper zone end expiratory wheezing. No tripoding, intercostal retractions. GI/ : No abdominal pain on palpation, no masses or distentions. MSK: Normal ambulation without pain at bony prominences or musculature Neurological: Normal neurological examination on overview, without obvious CN II-XII abnormalities. Vital Signs: Vital Signs: Last Vital Signs Temp 97.8 F 03/22/25 07:43 Pulse 70 03/22/25 07:57 Resp 16 03/22/25 07:57 BP 101/60 03/22/25 07:43 Pulse Ox 93 03/22/25 07:43 O2 Del Method Nasal Cannula 03/22/25 07:43 O2 Flow Rate 2 03/22/25 07:43 FiO2 30 03/21/25 09:00 BMI result Body Mass Index 25.1 Objective Data Active Medications Acetaminophen (Acetaminophen Supp 650 Mg Supp.Rect) 650 mg MI Q6H PRN PRN Reason: Fever >100.4 Albuterol Sulfate (Albuterol Sulfate (0.083%) 2.5 Mg/3 Ml Vial.Neb) 2.5 mg INHALE ONCE PRN PRN Reason: Shortness of Breath/Wheezing Albuterol Sulfate (Albuterol Sulfate 90 Mcg 8 Gm Inhaler) 2 puff INHALE Q6H PRN PRN Reason: Shortness Of Breath Or Wheezing Albuterol/Ipratropium (Albuterol/Iprat 2.5/0.5mg 3 Ml Ampul.Neb) 3 ml INHALE RQ4H KAYLEE Last Admin: 03/22/25 07:54 Dose: 3 ml Documented By: MIRZA Alprazolam (Alprazolam 0.5 Mg Tablet) 0.5 mg PO BID PRN PRN Reason: Anxiety Duloxetine HCl (Duloxetine Hcl 20 Mg Capsule.Dr) 20 mg PO DAILY [facility] Last Admin: 03/22/25 08:24 Dose: Not Given Documented By: VINOD Non-Admin Reason: takes at night Famotidine (Famotidine/Pf 20 Mg/2 Ml Vial) 20 mg IVPUSH BID [facility] Last Admin: 03/22/25 08:24 Dose: 20 mg Documented By: VINOD Furosemide (Furosemide 40 Mg/4 Ml Vial) 40 mg IVPUSH Q12H [facility]; Protocol Piperacillin Sod/Tazobactam (Sod 4.5 gm/ Sodium Chloride) 100 mls @ 200 mls/hr IV Q8H [facility] Last Infusion: 03/22/25 06:24 Dose: Infused Documented By: FLAQUITA Potassium Chloride (Potassium Chloride/H20) 10 meq in 100 mls @ 100 mls/hr IV Q1H [facility] Stop: 03/22/25 11:59 Last Admin: 03/22/25 10:24 Dose: 100 mls/hr Documented By: VINOD Methylprednisolone Sodium Succinate (Methylprednisolone Sod Succ 125 Mg/2 Ml Vial) 60 mg IVPUSH DAILY [facility] Last Admin: 03/22/25 08:24 Dose: 60 mg Documented By: VINOD Labs 03/22/25 05:11 03/22/25 05:11 Labs: Laboratory Results - last 24 hr 03/22/25 03/22/25 05:11 05:15 MCV 88.6 MCH 31.0 MCHC 34.9 RDW 12.9 Plt Count 229 MPV 9.0 L Immature Gran % (Auto) 0.4 Neut % (Auto) 89.7 H Lymph % (Auto) 6.2 L [place] % (Auto) 3.6 Eos % (Auto) 0.0 Baso % (Auto) 0.1 Lymph # (Auto) 1.0 L [place] # (Auto) 0.6 Eos # (Auto) 0.0 Baso # (Auto) 0.0 Abs Immat Gran (auto) 0.07 H Absolute Neuts (auto) 14.4 H Absolute Nucleated RBC 0.000 Nucleated RBC % (auto) 0.0 VBG pH 7.48 H VBG pCO2 45 VBG pO2 56 VBG HCO3 34 H VBG O2 Saturation 85.0 VBG Base Excess 9.9 Anion Gap 14 Estim Creat Clear Calc 52.3 Estimated GFR > 60 Random Glucose 98 Calcium 8.2 L Phosphorus 4.4 Magnesium 2.2 Total Bilirubin 0.5 AST 28 ALT 23 Alkaline Phosphatase 57 Total Protein 6.6 Albumin 3.9 Assessment and Plan (1) History of laparoscopy: Status: Acute (2) Acute kidney injury: Status: Acute (3) Acute encephalopathy: Status: Acute (4) Acute hypoxemic respiratory failure: Status: Acute (5) Acute metabolic encephalopathy: Status: Acute (6) Flash pulmonary edema: Status: Acute (7) Acute exacerbation of CHF (congestive heart failure): Status: Acute Plan Year-old female, with a background history of anxiety, asthma on daily inhalers, presents for elective hysteroscopy for postmenopausal bleeding c/b intraoperative acute hypoxic respiratory failure and metabolic encephalopathy s/p intubation 03/20/2025-03/21/2025, transfer to medical floor 03/22, currently being managed for acute hypoxic respiratory failure 2/2 flash pulmonary edema due to acute CHF unknown EF exacerbation. Acute hypoxic respiratory failure Flash pulmonary edema Acute CHF exacerbation unknown EF Intubation 03/20-03/21 No prior history. Intraoperatively during hysteroscopy, the patient became hypoxic She was transferred to medical ICU for acute hypoxic respiratory failure with flash pulmonary edema. She was intubated 03/20-03/21. Extubated and transferred to medical floor Physical examination reveals persistent crackles and crepitations at the bases and mid zones bilaterally. Impression of persistent CHF exacerbation PLAN - IV furosemide 40 mg b.i.d. - cardiac telemetry - intake/output q.6 hourly - daily weights - monitor and treat potassium/magnesium closely Hypokalemia PLAN - 40 mEq KCL IV - recheck BNP - magnesium oxide empirically treat hypomagnesemia Acute metabolic encephalopathy Resolved Patient currently has some fogginess - but has overall improved significantly Likely 2/2 metabolic etiology from hypoxemia versus status of medication perioperatively Postmenopausal bleeding S/p hysteroscopy 03/20 Plan for hysteroscopy/polypectomy Evidence of polyp intrauterine Follow up histology Chronic blood loss anemia Likely 2/2 persistent postmenopausal bleeding from polyp s/p polypectomy. Further outpatient evaluation and follow up [facility] - VTE: SCDs - postmenopausal bleeding - CODE STATUS: Full code - DIET: Regular Total time managing care of this patient today: 35 minutes. Quality Stroke Does the patient have a stroke diagnosis?: No VTE Prior VTE?: No VTE Risk Level:: Medical - low VTE Device Contraindication: N/A - Device Ordered VTE Drug Contraindication: Treatment Not Tolerated
[2025-03-22] MEDS: Furosemide 40 MG/4 ML VIAL IVPUSH ×2 (11:08→23:16)
[2025-03-22] MEDS: Potassium Chloride ER 20 MEQ TAB.ER.PRT PO ×2 (13:32→22:03)
[2025-03-22 15:31] LABS: Anion Gap 13 (12-20); Blood Urea Nitrogen 21 mg/dL (9-16); Calcium 8.9 mg/dL (8.4-10.2); Carbon Dioxide 35 mmol/L (22-29); Chloride 97 mmol/L (96-108); Creatinine Clr Calc Pharmacy 47.4; Estimated Glomerular Filt Rate 57; Potassium 2.9 mmol/L (3.3-5.1); Sodium 142 mmol/L (135-145)
[2025-03-23] VITALS (7 sets, daily range): BP systolic 120–139; BP diastolic 58–73; PULSE 70–89; RESP 18; TEMP 36.6–36.9; O2SAT 90–96
--- NOTE | 2025-03-23 01:43 | PC.NURSE ---
Before administering patients scheduled IV lasix, I notified MD Uriel Keller about patients potassium level of 2.9 from 03/22/25 that was drawn at 1500. MD Trevino advised me to administer the medication as we have been replacing her potassium today, 03/22.
[2025-03-23 02:14] LABS: Potassium 3.3 mmol/L (3.3-5.1)
[2025-03-23 06:41] LABS: Anion Gap 13 (12-20); Blood Urea Nitrogen 25 mg/dL (9-16); Calcium 9.2 mg/dL (8.4-10.2); Carbon Dioxide 36 mmol/L (22-29); Chloride 98 mmol/L (96-108); Creatinine Clr Calc Pharmacy 57.6; Estimated Glomerular Filt Rate > 60; Potassium 3.2 mmol/L (3.3-5.1); Sodium 144 mmol/L (135-145)
[2025-03-23] MEDS: Potassium Chloride ER 20 MEQ TAB.ER.PRT PO (09:43)
[2025-03-23] MEDS: Furosemide 40 MG/4 ML VIAL IVPUSH ×2 (10:26→22:43)
[2025-03-23] MEDS: Albuterol/Iprat 2.5/0.5MG 3 ML AMPUL.NEB INHALE ×2 (11:33→20:06)
--- NOTE | 2025-03-23 15:20 | MHC.CM.PN ---
PER ROUNDS PT WILL DC TOMORROW HOME N/S
--- NOTE | 2025-03-23 16:46 | P.PNIM_ITS ---
Subjective Subjective Date of Service: 03/23/25 Interval History: Feels overall better today. Still has congested-sounding cough, with wheezing and expiratory by bedside. The patient is eager to be discharged home, but was recommended to remain in hospital to continue therapy and treatment She is in agreement Review of Systems Review of Systems: Yes all other systems are reviewed and are negative Physical Exam 2 Exam: Exam: General: A&O x3, oriented to time place person and situation, comfortable, no pain Cardiac: S1, S2 auscultated with no S3/4, no MRG. Well perfused. Respiratory: Improved congested breath sounds throughout all lung zones bilaterally, with crackles and crepitations auscultated to the mid zones bilaterally, and upper zone end expiratory wheezing. No tripoding, intercostal retractions. GI/ : No abdominal pain on palpation, no masses or distentions. MSK: Normal ambulation without pain at bony prominences or musculature Neurological: Normal neurological examination on overview, without obvious CN II-XII abnormalities. Vital Signs: Vital Signs: Last Vital Signs Temp 98.5 F 03/23/25 15:18 Pulse 88 03/23/25 15:18 Resp 18 03/23/25 15:18 BP 136/71 03/23/25 15:18 Pulse Ox 95 03/23/25 15:18 O2 Del Method Room Air 03/23/25 15:18 O2 Flow Rate 2 03/22/25 07:43 FiO2 30 03/21/25 09:00 BMI result Body Mass Index 25.1 Objective Data Active Medications Acetaminophen (Acetaminophen Supp 650 Mg Supp.Rect) 650 mg [place] Q6H PRN PRN Reason: Fever >100.4 Albuterol Sulfate (Albuterol Sulfate (0.083%) 2.5 Mg/3 Ml Vial.Neb) 2.5 mg INHALE ONCE PRN PRN Reason: Shortness of Breath/Wheezing Albuterol Sulfate (Albuterol Sulfate 90 Mcg 8 Gm Inhaler) 2 puff INHALE Q6H PRN PRN Reason: Shortness Of Breath Or Wheezing Albuterol/Ipratropium (Albuterol/Iprat 2.5/0.5mg 3 Ml Ampul.Neb) 3 ml INHALE RQ4H KAYLEE Last Admin: 03/23/25 15:20 Dose: Not Given Documented By: SANTOS Non-Admin Reason: Patient Refused Alprazolam (Alprazolam 0.5 Mg Tablet) 0.5 mg PO BID PRN PRN Reason: Anxiety Duloxetine HCl (Duloxetine Hcl 20 Mg Capsule.) 20 mg PO DAILY [facility] Last Admin: 03/23/25 09:39 Dose: Not Given Documented By: VINOD Non-Admin Reason: pt states that she takes med at night Famotidine (Famotidine/Pf 20 Mg/2 Ml Vial) 20 mg IVPUSH BID [facility] Last Admin: 03/23/25 08:17 Dose: 20 mg Documented By: VINOD Furosemide (Furosemide 40 Mg/4 Ml Vial) 40 mg IVPUSH Q12H [facility]; Protocol Last Admin: 03/23/25 10:26 Dose: 40 mg Documented By: VINOD Levofloxacin (Levofloxacin 750 Mg Tablet) 750 mg PO Q24H [facility] Last Admin: 03/23/25 09:43 Dose: 750 mg Documented By: VINOD Prednisone (Prednisone 20 Mg Tablet) 60 mg PO DAILY [facility] Last Admin: 03/23/25 09:43 Dose: 60 mg Documented By: VINOD Labs 03/22/25 05:11 03/23/25 05:14 Labs: Laboratory Results - last 24 hr 03/23/25 05:14 Hold Purple Top SEE NOTE Anion Gap 13 Estim Creat Clear Calc 57.6 Estimated GFR > 60 Random Glucose 104 Calcium 9.2 Assessment and Plan (1) Acute exacerbation of CHF (congestive heart failure): Status: Acute (2) Acute kidney injury: Status: Acute (3) Postmenopausal bleeding: Status: Acute (4) Acute encephalopathy: Status: Acute (5) Acute hypoxemic respiratory failure: Status: Acute (6) Flash pulmonary edema: Status: Acute (7) Acute metabolic encephalopathy: Status: Acute Plan Year-old female, with a background history of anxiety, asthma on daily inhalers, presents for elective hysteroscopy for postmenopausal bleeding c/b intraoperative acute hypoxic respiratory failure and metabolic encephalopathy s/p intubation 03/20/2025-03/21/2025, transfer to medical floor 03/22, currently being managed for acute hypoxic respiratory failure 2/2 flash pulmonary edema due to acute CHF unknown EF exacerbation. Acute hypoxic respiratory failure Flash pulmonary edema Acute CHF exacerbation unknown EF Mild intermittent asthma Intubation 03/20-10/1 No prior history. Intraoperatively during hysteroscopy, the patient became hypoxic She was transferred to medical ICU for acute hypoxic respiratory failure with flash pulmonary edema. She was intubated 03/20-03/21. Extubated and transferred to medical floor Physical examination reveals persistent crackles and crepitations at the bases and mid zones bilaterally. Impression of persistent CHF exacerbation PLAN - IV furosemide 40 mg b.i.d.; transitioned to 40 mg OD p.o. furosemide - cardiac telemetry - intake/output q.6 hourly - daily weights - monitor and treat potassium/magnesium closely - levofloxacin 750 mg OD p.o. - prednisone 60 mg OD p.o. Hypokalemia PLAN - 20 mEq KCL p.o. - recheck BNP - magnesium oxide empirically treat hypomagnesemia Acute metabolic encephalopathy Resolved Patient currently has some fogginess - but has overall improved significantly Likely 2/2 metabolic etiology from hypoxemia versus status of medication perioperatively Postmenopausal bleeding S/p hysteroscopy 03/20 Plan for hysteroscopy/polypectomy Evidence of polyp intrauterine Follow up histology Chronic blood loss anemia Likely 2/2 persistent postmenopausal bleeding from polyp s/p polypectomy. Further outpatient evaluation and follow up [facility] - VTE: SCDs - postmenopausal bleeding - CODE STATUS: Full code - DIET: Regular Total time managing care of this patient today: 35 minutes. Quality Stroke Does the patient have a stroke diagnosis?: No VTE Prior VTE?: No VTE Risk Level:: Medical - low VTE Device Contraindication: N/A - Device Ordered VTE Drug Contraindication: Treatment Not Tolerated
[2025-03-24 03:45] VITALS: BP 112/65; PULSE 75; RESP 18; TEMP 36.3; O2SAT 92
[2025-03-24 06:29] LABS: Anion Gap 14 (12-20); Blood Urea Nitrogen 30 mg/dL (9-16); Calcium 9.6 mg/dL (8.4-10.2); Carbon Dioxide 32 mmol/L (22-29); Chloride 99 mmol/L (96-108); Creatinine Clr Calc Pharmacy 65.0; Estimated Glomerular Filt Rate > 60; Potassium 3.1 mmol/L (3.3-5.1); Sodium 142 mmol/L (135-145)
[2025-03-24 07:33] VITALS: BP 144/62; PULSE 79; RESP 18; TEMP 36.7; O2SAT 94
[2025-03-24] MEDS: Albuterol/Iprat 2.5/0.5MG 3 ML AMPUL.NEB INHALE (07:55)
[2025-03-24 07:57] VITALS: PULSE 80; RESP 16
[2025-03-24] MEDS: Potassium Chloride Packet 20 MEQ PACKET 40 MEQ PO (08:13)
--- NOTE | 2025-03-24 10:52 | P.DS_ITS ---
DS: Providers Provider Date of Service: 03/24/25 Date of admission: 03/20/25 16:37 Date of discharge: 03/24/25 Primary care physician: Adebayo Chacko MD DS: Diagnosis Discharge Diagnosis (1) Acute exacerbation of CHF (congestive heart failure): Status: Acute (2) Acute kidney injury: Status: Acute (3) Postmenopausal bleeding: Status: Acute (4) Acute encephalopathy: Status: Acute (5) Acute hypoxemic respiratory failure: Status: Acute (6) Flash pulmonary edema: Status: Acute (7) Acute metabolic encephalopathy: Status: Acute DS: Summary Hospital Course Hospital Course: Year-old female, with a background history of anxiety, asthma on daily inhalers, presents for elective hysteroscopy for postmenopausal bleeding c/b intraoperative acute hypoxic respiratory failure and metabolic encephalopathy s/p intubation 03/20/2025-03/21/2025, transfer to medical floor 03/22, currently being managed for acute hypoxic respiratory failure 2/2 flash pulmonary edema due to acute CHF unknown EF exacerbation. Acute hypoxic respiratory failure Flash pulmonary edema Acute CHF exacerbation unknown EF Mild intermittent asthma Intubation 03/20-03/21 No prior history. Intraoperatively during hysteroscopy, the patient became hypoxic She was transferred to medical ICU for acute hypoxic respiratory failure with flash pulmonary edema. She was intubated 03/20-03/21. Extubated and transferred to medical floor Physical examination reveals persistent crackles and crepitations at the bases and mid zones bilaterally. Impression of persistent CHF exacerbation Patient was diuresed with 40 mg b.i.d. IV furosemide, until euvolemic. Consolidation furosemide 20 mg OD p.o. she continued for another 2 days Patient was hypokalemic during her admission, and required p.o. supplements. He is recommended to intake increased amount of dried fruits for the next few days RECOMMENDATIONS - furosemide 20mg OD PO for 2 days - levofloxacin 750 mg OD p.o. for 10 days total - prednisone 60 mg OD p.o. for 10 days total - recheck BMP in 2 days Hypokalemia RECOMMENDATIONS - 20 mEq KCL p.o. tonight - recheck BMP in 2 days from DC Acute metabolic encephalopathy Resolved Patient currently has some fogginess - but has overall improved significantly Likely 2/2 metabolic etiology from hypoxemia versus status of medication per ioperatively Postmenopausal bleeding S/p hysteroscopy 03/20 Plan for hysteroscopy/polypectomy Evidence of polyp intrauterine Follow up histology Status at Discharge Functional status at discharge: independent ambulation Overall status at discharge: patient is back to baseline Time Attestation Total time managing care of this patient today: 45 mintues. Discharge Coordination Time (in mins): 15 Specific discharge activities: 15 Quality: Safe Use of Opioids Does Pt have an Active Cancer Diagnosis on the Problem List?: No Quality: Stroke Does the patient have a stroke diagnosis?: No Physical Exam Exam: Exam: General: A&O x3, oriented to time place person and situation, comfortable, no pain Cardiac: S1, S2 auscultated with no S3/4, no MRG. Well perfused. Respiratory: Normal breath sounds auscultated throughout all lung zones, without wheezing, rales. Normal rate. GI/ : No abdominal pain on palpation, no masses or distentions. MSK: Normal ambulation without pain at bony prominences or musculature Neurological: Normal neurological examination on overview, without obvious CN II-XII abnormalities. Vital Signs: Vital Signs: Last Vital Signs Temp 98.1 F 03/24/25 07:33 Pulse 80 03/24/25 07:57 Resp 16 03/24/25 07:57 BP 144/62 H 03/24/25 07:33 Pulse Ox 94 03/24/25 07:33 O2 Del Method Room Air 03/24/25 03:45 O2 Flow Rate 2 03/22/25 07:43 FiO2 30 03/21/25 09:00 BMI result Body Mass Index 25.1 DS: Data Data Completed and Pending Completed studies during hospitalization [Text1]: Pending at discharge 03/20/25 15:17 Surgical [PTH] Routine Labs on day of discharge: Laboratory Results - last 24 hr 03/24/25 05:09 Hold Purple Top SEE NOTE Sodium 142 Potassium 3.1 L Chloride 99 Carbon Dioxide 32 H Anion Gap 14 BUN 30 H Creatinine 0.70 Estim Creat Clear Calc 65.0 Estimated GFR > 60 Random Glucose 105 Calcium 9.6 Discharge Plan Discharge Anticipated Discharge Date/Time: 03/24/25 10:54 Patient Disposition: Home, Self-Care Discharge Diagnosis: Flash pulmonary edema postoperatively 2/2 acute CHF exacerbation Referrals: Adebayo Chacko MD [Primary Care Provider, Internal Medicine] - 1 Week Discharge Medications: New levofloxacin 750 mg Tablet 750 mg PO Q24H 6 Days Qty: 6 0RF prednisone 20 mg Tablet 60 mg PO DAILY 6 Days Qty: 18 0RF potassium chloride 20 mEq Tablet,Er Particles/Crystals 20 meq PO DAILY 2 Days Qty: 2 0RF furosemide [Lasix] 20 mg tablet 20 mg PO DAILY 2 Days Qty: 2 0RF Continued alprazolam 0.5 mg tablet 0.5 mg PO BID PRN (Reason: Anxiety) albuterol sulfate [Ventolin HFA] 90 mcg/actuation HFA aerosol inhaler 2 puff inhalation Q6H PRN (Reason: Shortness Of Breath Or Wheezing) progesterone micronized 100 mg capsule 100 mg PO QAM Rx Instructions: off 7 days; repeat cycle duloxetine 20 mg capsule,delayed release(DR/EC) 20 mg PO DAILY Discharge Orders: Discharge Order (Routine); Ordered 03/24/25 Ordered By: Alina Velazquez Activity on Discharge: As tolerated Print Language: Syriac Activity Restrictions/Additional Instructions: You have recently undergone a surgical procedure called Hysteroscpy with dilatation and curettage. During this procedure the lining of the uterus was scraped. Personal Care: For two weeks - no intercourse, no tampons, no douching. It is best to avoid soaking in a tub or swimming as bacteria in the water can enter the uterus. Bleeding/Discharge: You may experience light vaginal bleeding after surgery. You may also note a watery or blood-tinged weepy discharge for several days after surgery. This usually subsides after several weeks. Diet: You may eat whatever you feel you can tolerate. You may experience residual nausea from the anesthesia or pain medication which may decrease your appetite. It is most important to remain hydrated and clear liquids are usually easily tolerated. Activity: You may resume your normal daily activities. You may find that you tired more easily as a result of the surgery and anesthesia. It is best to avoid strenuous activity or sports for about one week after surgery, although there are no specific restrictions on activity. Pain: You may experience some mild pelvic cramping after surgery. For most patients, Nonsteroidal anti-inflammatory drugs (NSAIDs) such as ibuprofen (Motrin or Advil) or Tylenol works best to control post-operative pain. Typically, ibuprofen (Motrin or Advil) 600 mg is recommended every 6 hours or Tylenol 650 mg every 6 hours as needed for pain for the first 24 to 48 hours after surgery. Do not take the ibuprofen on an empty stomach. Your cramping should resolve within a day or two. If you have cyclic pain without bleeding, contact the office for follow-up at [phone]. Follow-up: schedule a post-operative examination after this procedure in 2 weeks. Please call out office at [phone] if you experience any of the following: Temperature greater than 100.4 degrees Nausea and vomiting, unable to tolerate anything by mouth Vaginal bleeding, more than one pad every hour Foul-smelling vaginal discharge Progressively worsening pain Care Plan Goals: As above Health Concerns: As above Plan of Treatment: - furosemide 20mg OD PO for 2 days - levofloxacin 750 mg OD p.o. for 6 more days - prednisone 60 mg OD p.o. for 6 more days - recheck BMP in 2 days - 20 mEq KCL for next 2 days - recheck BMP in 2 days from DC Assessment: As above
[2025-03-24 11:23] VITALS: BP 155/67
[2025-03-24] MEDS: Furosemide 40 MG/4 ML VIAL IVPUSH (11:23)
--- NOTE | 2025-03-24 11:24 | PC.NURSE ---
OK to adminiter Lasix per Dr. Velazquez
--- NOTE | 2025-03-24 11:59 | MHC.CM.PN ---
PT WILL DC HOME TODAY WITH NO SERVICES VIA FAMILY TRANSPORT
[2025-03-24] MEDS: Potassium Chloride ER 20 MEQ TAB.ER.PRT PO (12:36)
== END 2025-03-24 13:20 | disposition home or self-care (01) | DRG 987 ==
LOC: HO.ICU 16:54 → HO.S3 03-21 16:02
PROVIDERS: Hospitalist; Internal Medicine; Obstetrics & Gynecology; Physician Assistant Medical; Absent Provider Internal Medicine Critical Care Medicine; Admitting Provider Internal Medicine Critical Care Medicine; PCP Internal Medicine; Visit Provider Hospitalist
PROC: 0UDB8ZZ Extraction of Endometrium, Via Natural or Artificial Opening Endoscopic (ICD-10-PCS; CPT 58558; principal; 2025-03-20 14:30)
DX: J95.88 Other intraoperative complications of respiratory system, not elsewhere classified (principal); G92.8 Other toxic encephalopathy; J96.01 Acute respiratory failure with hypoxia; R57.0 Cardiogenic shock; G93.41 Metabolic encephalopathy; N17.9 Acute kidney failure, unspecified; N84.0 Polyp of corpus uteri; N95.0 Postmenopausal bleeding; F41.9 Anxiety disorder, unspecified; I50.9 Heart failure, unspecified; T41.0X5A Adverse effect of inhaled anesthetics, initial encounter; Y84.8 Other medical procedures as the cause of abnormal reaction of the patient, or of later complication, without mention of misadventure at the time of the procedure; E87.6 Hypokalemia; D50.0 Iron deficiency anemia secondary to blood loss (chronic); J45.20 Mild intermittent asthma, uncomplicated; Z79.899 Other long term (current) drug therapy
CPT/HCPCS: 36415; 71045; 80048; 80053; 82803; 83735; 83880; 84100; 84132; 85025; 87086; 88305; 93005; 93306; 94002; 94003; 94640; 94799; J0168; J1308; J1938; J2003; J2543; J2704; J2765; J2919; J3010; J3480; J7120; Q9957

== ENCOUNTER 2025-03-20 16:37 | Outpatient (BNV) | payer MEDICARE, SELFPAY | END 2025-03-21 07:00 | PROVIDERS: Absent Provider Internal Medicine Critical Care Medicine; Admitting Provider Internal Medicine Critical Care Medicine; PCP Internal Medicine; Visit Provider Internal Medicine | DX: J81.1 Chronic pulmonary edema (principal) | CPT/HCPCS: 93306 ==

== ENCOUNTER 2025-03-20 16:37 | Outpatient (BNV) | payer MEDICARE, SELFPAY | END 2025-03-20 17:34 | PROVIDERS: Absent Provider Internal Medicine Critical Care Medicine; Admitting Provider Internal Medicine Critical Care Medicine; PCP Internal Medicine; Visit Provider Internal Medicine | DX: I49.1 Atrial premature depolarization (principal); R00.1 Bradycardia, unspecified | CPT/HCPCS: 93010 ==

== ENCOUNTER → 2025-03-20 16:37 | Outpatient (BNV) | payer OTHER, SELFPAY | PROVIDERS: Absent Provider Internal Medicine Critical Care Medicine; Admitting Provider Internal Medicine Critical Care Medicine; PCP Internal Medicine; Visit Provider Internal Medicine Critical Care Medicine | DX: J96.01 Acute respiratory failure with hypoxia (principal); J81.1 Chronic pulmonary edema; N17.9 Acute kidney failure, unspecified; G93.40 Encephalopathy, unspecified | CPT/HCPCS: 99291 ==

== ENCOUNTER → 2025-03-20 16:37 | Outpatient (BNV) | payer MEDICARE, SELFPAY | PROVIDERS: Absent Provider Internal Medicine Critical Care Medicine; Admitting Provider Internal Medicine Critical Care Medicine; PCP Internal Medicine; Visit Provider Hospitalist | DX: Z98.890 Other specified postprocedural states (principal); N17.9 Acute kidney failure, unspecified; G93.40 Encephalopathy, unspecified; J96.01 Acute respiratory failure with hypoxia; G93.41 Metabolic encephalopathy; J81.0 Acute pulmonary edema; I50.9 Heart failure, unspecified | CPT/HCPCS: 99232 ==

== ENCOUNTER 2025-03-27 09:09 | Outpatient (AMB) | payer MEDICARE, SELFPAY ==
--- NOTE | 2025-03-27 09:09 | MHC.OFFVIS ---
Intake Visit Reasons: TV post op Allergies Sulfa (Sulfonamide Antibiotics) Allergy (Intermediate, Verified 03/20/25 13:20) Hives HPI Comments Details: The patient is presenting post hysteroscopy D&C no complaints minimal vaginal bleeding no feverishness chills or abdominal pain. The pathology showed the following: A. Endometrial polyp, resection: Benign endometrial polyp with cysts, metaplastic changes, focal stromal collapse, focal crowded glands, and focal endocervical glandular mucosa; no carcinoma (see comment). B. Endometrium, curettage: Benign inactive endometrium and scant benign endocervical glandular epithelium; no atypia or carcinoma. Comment: The findings in the current specimen are not sufficient for an unequivocal diagnosis of atypical hyperplasia/endometrioid intraepithelial neoplasia. Consider follow up sampling in 4-6 months, or earlier if there are clinical concerns, to exclude atypia PFSH Medical History Mitral regurgitation Osteopenia Depression Asthma Surgical History H/O colonoscopy Hx of cholecystectomy History of oophorectomy, unilateral History of laparoscopy Family History Mother HTN (hypertension) Rheumatoid arteritis Father HTN (hypertension) High cholesterol Social History Household Members: Unknown / Unable to assess Housing: Unknown / Unable to assess Alcohol intake: never Patient Tobacco Use Status: Tobacco use Unknown service: No Current occupational status: retired Sexual orientation: Straight/Heterosexual Gender identity: Female Review of Systems Const All systems reviewed & are unremarkable except as noted in HPI and below Reports as per HPI and Reports no additional complaints GI Reports no additional complaints Reports no additional complaints Telehealth Telehealth Telehealth Platform: Telephone Location of provider rendering services: practice address Location of patient: address on file Patient Identification confirmed using: Name, : Yes Telehealth method: voice only Patient verbally consented to treatment: Yes Patient verbally consented to billing insurance company: Yes Patient informed of any privacy concerns related to visit: Yes Minutes spent on Phone/Video with Pt.: 4 Assessment & Plan Assessment & Plan (1) Endometrial polyp: Comment: With crowded gland insufficient for hyperplasia diagnosis by pathology Code(s): N84.0 - Polyp of corpus uteri Category: Medical Plan: Discussed with the patient the results of the pathology showing endometrial polyp with crowded glands but insufficient for atypical endometrial hyperplasia or malignancy, recommended referral to Gyne Onc for further management. All questions answered, the patient verbalized understanding. I spent a total of 20 minutes reviewing the chart, talking to the patient via video and documenting in the medical record. Orders: Referrals Gynecologic Oncology Referral N84.0 - Polyp of corpus uteri Coding Level of Care Code Tele Est Pt Level 3 (16540) Diagnoses Endometrial polyp N84.0
--- OUTSIDE RECORDS SUMMARY | 2025-03-27 10:06 | XMS_ITS | Encounter Summary ---
Author Organization [facility] Address [address] [place] [phone] Phone Care Team Providers Care [employer] Consultant Name Role Phone Adebayo Chacko DO Primary Care Provider [phone] Encounter Details Date Type Department Care Team (Latest Contact Info) Description 02/21/2025 Transcribe Orders Virtual Department [address] [place] [address] Chelle Hurtado PA [address] [facility] [place] [address] [place] [address] Postmenopausal bleeding (Primary Dx) Social History Tobacco [...] to endometrial hyperplasia, submucosal fibroid, or malignancy. 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 2. Nonvisualization of the ovaries. Narrative 02/28/2025 3:27 PM EDT US PELVIS TRANSABDOMINAL AND TRANSVAGINAL Referring clinician's provided indication for this examination in [facility]: Outside Radiology Order; postmenopausal bleeding TECHNIQUE: [...] clinician's provided indication for this examination in [facility]:Outside Radiology Order; postmenopausal bleeding TECHNIQUE: Pelvic [...] due to endometrial hyperplasia, submucosal fibroid,or malignancy. 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 2. Nonvisualization of the ovaries. us Chelle VELASQUEZ IMG US PELVIS Final Resul t documented in this encounter Visit Diagnoses Diagnosis Postmenopausal bleeding- Primary Postmenopausal bleeding documented in this encounter Care Teams [employer] Consultant Relationship Specialty Start Date End Date Adebayo Chacko DO [address] [place] [address] [email or web address] PCP - General Internal Medicine 02/23/25 documented as of this encounter Additional Source Comments The information contained in this document represents components of the legal health record. It is not the complete legal health record.[facility]
== END 2025-03-27 09:48 | disposition home or self-care (01) ==
LOC: HO.HWS 09:09
PROVIDERS: PCP Internal Medicine; Visit Provider Obstetrics & Gynecology
DX: N84.0 Polyp of corpus uteri (principal)
CPT/HCPCS: 98005

== ENCOUNTER 2025-05-03 12:13 | Outpatient (REF) | payer MEDICARE, SELFPAY ==
--- OUTSIDE RECORDS SUMMARY | 2025-05-03 15:25 | XMS_ITS | Data Portability ---
Author Organization [place] [facility],, NAN HADLEY MD Address [address] [facility] [address] [place] [address] Assessment No assessment recorded. Plan of Treatment Reminders Order Date Submit Date Provider Last Modified By Organization Details Last Modified Time Details Appointments None recorded. Lab cytology, Pap smear 2012 013 [facility], Cytopathology Service, [address] [place], [address], 3 07:53:21 occult blood, screen 2012 013 [email or web address] 1 In-Office Order, Internal Use Only DO Not Attach Compendium DO Not Attach Compendium, Do Not Delete/merge, [id number] 3 13:43:04 biopsy, endometri al 2012 013 [facility], Cytopathology Service, [address] [place], [address], 3 05:14:19 cytology, Pap smear 2011 012 [facility], Cytopathology Service, [address] [place], [address], 3 05:13:52 occult blood, screen 2011 012 [facility] In-Office Order, Internal Use Only DO Not Attach Compendium DO Not Attach Compendium, Do Not Delete/merge, [id number] 3 05:13:49 Referral None recorded. Procedures biopsy, endometri um (PROC) 2012 013 [facility] In-Office Order, Internal Use Only DO Not Attach Compendium DO Not Attach Compendium, Do Not Delete/merge, [id number] 3 05:14:18 Surgeries None recorded. Imaging MAMMO, screening , digital, bilateral 2012 013 [facility] [address] [place], [address], 4 07:42:10 ultrasoun d, pelvic transabdo colleen & transvagi nal 2012 013 [facility] (Radiology), [address] [place], [address], 3 05:14:16 bone density study 2011 012 [facility] (Central Scheduling Radiology), [address] [place], [address], 3 05:13:51 MAMMO, screening , digital, bilateral 2011 012 [facility] (Central Scheduling Radiology), [address] [place], [address], 3 05:13:52 Medication Orders Detrol LA 4 mg capsule,e xtended release 2012 013 [id number], [address] [place] [address], [id number], 3 11:46:00 Patient TargetsNo targets recorded. Patient [...] about this. Not available 12/25/2011 12:54:54 07/18/2012 21566 vaginal bleeding after menopause: care instructions AMBER [...] 25 minutes Not available 07/18/2012 13:44:51 07/26/2012 24407 endometrial biop sy: about this test AMBER Not available 01/13/2013 05:14:18 She tolerated th e EMB well, post op care discussed. Call for results. Not available 07/26/2012 14:06:20 04/11/2013 44043 vaccinations for children: care instructions tmeczywor Not [...] DO Not Attach Compendium, Do Not Delete/merge, [id number] 04/11/2013 11:06:37 12/25/19 12 12/25/2011 occul t blood , scree n Occult Blood negati ve Not Available In-Office Order Internal Use Only DO Not Attach Compendium DO Not Attach Compendium, Do Not Delete/merge, [id number] 12/25/2011 10:25:19 12/24/19 12 2011 cytol ogy, Pap smear Pap neg Not Available [facility] [address] [place], [address], 12/28/2011 09:22:57 07/26/19 13 07/26/2012 patho logy, [...] piece s, x2. ts physi cians : fleicia carmona n /#([phone] anato jenifer patho logy servi wall[facility] provi ded [facility] at [address] [place] [address], [place] [address] Not Available [facility], Cytopathology Service [address] [place] [address], [address], 07/28/2012 12:05:10 04/11/20 13 04/11/2013 pap1c ase zsi2kuuk thinp rep Pap, image d: negat eb [...] at the above addre ss. Not Available [facility], Cytopathology Service [address] [place] [address], [address], 04/14/2013 09:23:21 01/06/20 12 01/05/2012 bone densi ty study No observ ation record ed. [facility] (Medical Records) [address], [place], [address], 01/13/2013 05:13:52 01/13/20 12 01/05/2012 MAMMO , scree chelo, digit al, bilat eral No observ ation record ed. [facility] (Central Scheduling Radiology) [address] [place], [address], 01/13/2013 05:13:53 01/18/20 12 01/05/2012 imagi ng/di agnos tic resul t No observ ation record ed. [facility] Not Available 2012 05:13:56 07/25/19 13 07/21/2012 ultra sound , pelvi c trans abdom inal & trans vagin al No observ ation record ed. [facility] (Radiology) [address] [place], [address], 01/13/2013 05:14:21 Result Notes None recorded. Problems Name Problem SNOMED Code Status Onset Date Resolution Date Notes Provider Name and Address Organization Details Recorded Time Endometriosis Active Not Available [facility] 3 03:01:02 Oligoovulator y dysfunctional uterine bleeding 537246923 Active Not Available [facility] 3 03:01:09 Postmenopausa l bleeding 87281260 Active Not Available [facility] 3 03:01:02 Senile osteopenia 13059375 Active Not Available [facility] 3 03:01:02 Depressive disorder 27603689 Active Not Available [facility] 3 03:01:02 Specialized medical examination Active Nan Hadley MD [address], [place], [address] , [place] [facility], 3 13:43:04 Urinary incontinence 568320362 Active Nan Hadley MD [address], [place], [address] , [place] [facility], 3 13:43:04 Problem Notes None recorded. Procedures Surgical History Date Name Laterality Status Provider Name and Address Organization Details Recorded Time 07/26/19 13 Endometrial Biopsy completed Nan Hadley MD [address] [facility],[address], [place], [address], [place] - [facility], 07/26/2012 15:20:18 12/19/18 87 Laparoscopy completed Evonne Mendiola in [facility], 11/10/2011 14:03:30 Tonsillectomy completed Evonne Mendiola in [facility], 11/10/2011 14:03:30 Oophorectomy completed Evonne Mendiola in [facility], 11/10/2011 14:03:30 Imaging Results None recorded. Procedure Notes None recorded. Medical Equipment None Reported. Allergies Allergen ID Allergen Name Allergen Category Reaction Reaction Severity Criticality Documentation Date Start Date Code Code System Note Provider Name and Address Organization Details Recorded Time 421 Substance with sulfonami de structure and antibacte rial mechanism of action (substanc e) medicatio n hives Not available Not available 11/10/2011 80335 8003 SNOMED [place] Mcdonough in [facility], 2 14:10:36 Medications Name Sig Start Date [...] Details Last Updated DateTime 07/18/2012 162.56 cm 87422.80 8518 g 27.7 kg/m2 73 /min 133/64 mm[Hg] Lorene Mendiola in [facility], 07/18/2012 13:05:28 Date Recorded Body height Body weight Body mass index (BMI) Heart rate Systolic And Diastolic Provider Name and Address Organization Details Last Updated DateTime 07/26/2012 162.56 cm 81276.24 5466 g 27.8 kg/m2 74 /min 134/76 mm[Hg] Lorene Mendiola in [facility], 07/26/2012 13:30:38 Date Recorded Body height Body weight Body mass index (BMI) Heart rate Systolic And Diastolic Provider Name and Address Organization Details Last Updated DateTime 2011 161.29 cm 95829.23 6634 g 29.3 kg/m2 91 /min 123/73 mm[Hg] Lorene Larios [place] - [place], 2011 11:06:30 Date Recorded Heart rate Body weight Body mass index (BMI) Systolic And Diastolic Provider Name and Address Organization Details Last Updated DateTime 04/11/2013 80 /min 04739.867 154 g 28.2 kg/m2 104/54 mm[Hg] Evonne Baileyfredo Mendiola in [facility], 04/11/2013 11:00:33 Date Recorded Body height Provider Name an d Address Organization Details Last Updated DateTime 04/11/2013 162.56 cm Lorene krueger in [facility], 04/11/2013 10:44:03 Social History Question Answer Notes LastModified by Organizat ion Details LastModified Time Tobacco Smoking Status Never Smoker Not Available [facility] 04/23/2020 03:19:41 Are You Blind Or Do You Have Difficulty Seeing? No [id number] Information not available 04/23/2020 What Is Your Level Of Caffeine Consumption? Moderate [id number] Information not available 04/23/2020 Are You Deaf Or Do You Have Serious Difficulty Hearing? No [id number] Information not available 04/23/2020 What Type Of Diet Are You Following? REGULAR [id number] Information not available 04/23/2020 Which Illicit Or Recreational Drugs Have You Used? None [id number] Information not available 04/23/2020 Education 2 Year College Information not available 2011 Marital Status Informatio n not available 2011 Are You Sexually Active? Yes [id number] Information not available 04/23/2020 How Much Tobacco Do You Smoke? No [id number] Information not available 04/23/2020 General Stress Level Low Information not available 2011 Do You Have Difficulty Walking Or Climbing Stairs? No [id number] Information not available 04/23/2020 Sex: Unknown Functional Status Question Answer Note LastModified by Organizat ion Details LastModified Time What is your level of alcohol consumption? None [id number] Information not available 04/23/2020 Do you have difficulty doing errands alone? No [id number] Information not available 04/23/2020 What is your occupation? retired [employer] Information not available 04/11/2013 Do you have difficulty dressing, bathing, grooming, or toileting? No [id number] Information not available 04/23/2020 What is your exercise level? Moderate [id number] Information not available 04/23/2020 Mental Status Question Answer Note LastModified by Organization D etails LastModified Time Do you have difficulty concentrating, remembering or making decisions? No [id number] Information no t available 04/23/2020 Family History Relationship Description Onset Age of this Age Resolved Age Notes LastModified by Organization Details LastModified Time Mother Hypertensive disorder 75 Unknow n cause (previ ously record ed as Hypert ension ) Not available 04/09/2013 03:00:57 Father Heart disease Hx Angina (previ ously record ed as Heart Proble m) [id number] Not available 04/09/2013 03:00:57 Medical History Condition Response Anesthesia complications N High Blood Pressure N Kidney or Bladder Problems N Thyroid Problems N Lung Disease Y Depression Y GI Problems Y Defects or Inherited Disease N History of Ovarian Cancer N Anemia N History of Breast Cancer N BRCA [...] and Address Organization Details Recorded Time influenza, [id number] 04/21/2011 completed Nan Hadley MD [address], [place], [address], [place] - [facility], 07/18/2012 13:12:53 Influenza, split virus, trivalent, PF 04/11/2013 completed Not Available [facility] 2019 02:22:34 influenza, [id number] 04/21/2012 completed Nan Hadley MD [address], [place], [address], [facility], 07/18/2012 13:12:53 Past Encounters Encounter ID Performer Location Encounter Start Date Encounter Closed Date Diagnosis/Indication Diagnosis SNOMED-CT Code Diagnosis ICD10 Code Diagnosis IMO Codes Diagnosis Note [id number] MD NAN Roque MD [address] [place] [address] 2011 10:37:23 2011 14:58:53 [id number] MD NAN Roque MD [address] [place] [address] 07/18/2012 12:55:44 07/19/2012 09:27:00 [id number] MD NAN Roque MD [address] [place] [address] 07/26/2012 13:22:59 07/26/2012 15:48:13 [id number] MD NAN Roque MD [address] [place] [address] 04/11/2013 10:40:32 04/12/2013 11:59:28 Specialized medical examination 32950353 Screening for malignant neoplasm of rectum 430332231 Screening mammography 50253828 Urinary incontinence 137273171 Influenza vaccine needed [id number] 106 Health Concerns Section Related Observation LastModified by Organization Detai ls LastModified Time None Recorded Concern Status LastModified by Organization Details LastModified Time None Recorded Advance Directives Directive None Recorded Payers Insurance Date Sequence Insurance Name Policy Number Policy Craig Covered Member ID Craig Member ID Guarantor Name 03/20/2025 1 [facility] Jean Paul Lombardi [id number] Erika Lombardi Notes Date Note Type Note Provider Name and Address Organization Details Recorded Time 2011 text/html ROS as noted in the HPI Nan Hadley MD [address] [place],[address], [place], [address], [facility], 12/25/2011 12:55:19 07/18/2012 text/html ROS as noted in the HPI Nan Hadley MD [address] [facility],[address], [place], [address], [place] - [facility], 07/18/2012 13:48:00 07/26/2012 text/html ROS as noted in the HPI Nan Hadley MD [address] [facility],[address], [place], [address], [facility], 07/26/2012 15:20:29 04/11/2013 text/html ROS as noted in the HPI Nan Hadley MD [address], [place], [address], [facility] - [facility], 04/11/2013 13:44:27 OBGyn Episode No OBEpisode recorded.
--- OUTSIDE RECORDS SUMMARY | 2025-05-03 15:25 | XMS_ITS | Data Portability ---
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) MDM MODERATE MUST MEET 2 OUT OF [...] - posterior left leg; calf 2022 023 [facility], [address] [place] [address], [place], [address], 3 11:23:12 unlisted lab - routine culture, stool 2021 022 [facility] (Centralized Electronic Ordering - All Locations), Patient Can Go To The Location Of Their Choice, [address] 14:00:33 unlisted lab - fecal elastase 2021 022 [facility] (Centralized Electronic Ordering - All Locations), Patient Can Go To The Location Of Their Choice, [address] 2 14:00:33 Referral dermatolog ist referral 2023 024 [email or web address] 10 Mik Stearns MD, [address] [place], [address], 4 08:08:22 Procedures None recorded. Surgeries None recorded. Imaging None recorded. Medication Orders alprazolam 0.[address] [facility] #0084, [address] [place], [address], 5 15:10:55 albuterol sulfate HFA 90 mcg/actuat ion aerosol inhaler 2023 024 [facility], [address] [place], [address], 4 14:47:39 clonidine HCl 0.1 mg tablet 2023 [facility]24 [facility] [address] [place], [address], 5 15:06:07 valacyclov ir 1 gram tablet [address]/Pharmacy #0084, [address] [place], [address], 4 14:32:29 prednisone 10 mg tablet [address]/Pharmacy #0084, [address] [place], [address], 4 14:32:16 dicyclomin e 10 [address] capsule [address] [facility] #0084, [address] [place], [address], 3 11:03:23 Patient TargetsNo targets recorded. Patient InstructionsNo instructions recorded. 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 [facility] [address] [facility] [address], [place], [address], 03/02/2025 11:15:21 03/19/20 25 02/28/2025 US, pelvi s, trans abdom inal + trans vagin al No observ ation record ed. [email or web address] [facility] [address], [place], [address], 03/19/2025 15:58:26 03/20/20 25 03/20/2025 XR, chest , 2 view No observ ation record ed. [facility] (Medical Records) [address] [place], [address], 03/21/2025 08:24:27 Result Notes None recorded. Problems Name Problem SNOMED Code Status Onset Date Resolution Date Notes Provider Name and Address Organization Details Recorded Time Carotid artery stenosis 80862406 Active 2021 Not Available [facility] 4 14:20:46 Carotid artery stenosis 69456388 Active 2021 mild, will monitor , repeat US every year (next check 02/10) Not Available [facility] 4 14:20:46 Irritable bowel syndrome 08595250 Active 2021 Not Available [facility] 4 14:20:46 Menopausa l syndrome 160309183 Active 2021 Not Available [facility] 4 14:20:46 Abdominal pain 86848800 Active 2021 [facility] 4 14:20:46 Herpes zoster 3412170 Active 2022 Not Available [facility] 4 14:20:46 Pruritic rash 05082781 Active 2022 Not Available [facility] 4 14:20:46 Anxiety 36550513 Active 2022 Not Available [facility] 4 14:20:46 Asthma 803162278 Active 2022 Not Available [facility] 4 14:20:46 Menopausa l symptom 57887922 Active 2023 RON QUINTEROS [address] [place], [address], [facility] [place] 4 08:32:49 Selective serotonin re-uptake inhibitor withdrawa l 998135662 Active 2023 RON QUINTEROS [address] [place], [address], [facility] [place] 4 14:39:35 Multiple benign melanocyt ic nevi 306970776 Active 2023 RON QUINTEROS [address] [place], [address], [facility] [place] 4 14:53:39 Skin lesion 02240106 Active 2023 RON QUINTEROS [address] [place], [address], [facility] [place] 4 08:44:46 Acute urinary tract infection 442872161 Active 2024 RON QUINTEROS [address] [place], [address], [facility] [place] 5 08:59:48 Chronic low back pain 276033033 Active 2024 RON QUINTEROS [address] [place], [address], [facility] [place] 5 15:55:01 Postmenop ausal bleeding 26958646 Active 2024 RON QUINTEROS [address] [place] [address], [address], [facility] [place] 13:30:40 Endometri al hyperplas ia 037950334 Active 2024 RON QUINTEROS [address] [place] [address], [address], [facility] [place] 11:15:51 Acute respirato ry failure 12662342 Active 2024 RON QUINTEROS [address] [place] [address], [address], [facility] [place] 15:40:16 Acute systolic heart failure 158831168 Active 2024 RON QUINTEROS [address] [place] [address], [address], [facility] [place] 15:40:35 Acute cardiac pulmonary edema 041636957 Active 2024 RON QUINTEROS [address] [place] [address], [address], [facility] [place] 15:41:00 Notes:Some problems listed i n Documents: #[id number], #[id number], #[id number], #[id number], #[id number] could not be added to this patient's chart. Please review these documents and add these problems to the patient's chart manually as needed. Problem Notes None recorded. Procedures Surgical History Date Name Laterality Status Provider Name and Address Organization Details Recorded Time Hysteroscopy completed Nai Hernandez [facility] 03/20/2025 16:46:13 Imaging Results None recorded. Procedure Notes None recorded. Medical Equipment None Reported. Allergies Allergen ID Allergen Name Allergen Category Reaction Reaction Severity Criticality Documentation Date Start Date Code Code System Note Provider Name and Address Organization Details Recorded Time 5954 Bactrim medicatio n hives Not available Not available 02/02/2022 10775 9 [facility] 2 11:49:15 595 Valium medicatio n hallucina tions Not available Not available 02/02/2022 2 RxNorm Nyasia Gross [facility] 2 11:49:30 Medications Name Sig Start Date [...] Updated DateTime 3 162.56 cm 25.6 kg/m2 16372.2 6 g 62 /min 99 % 99 % 120/70 mm[Hg] Ghazal Granados [facility] 3 11:06:02 Date Recorded Body height Body mass index (BMI) Body weight Heart rate Oxygen saturation Oxygen saturation in Arterial blood by Pulse oximetry Systolic And Diastolic Provider Name and Address Organization Details Last Updated DateTime 4 162.56 cm 24.9 kg/m2 06205.8 9 g 66 /min 97 % 97 % 122/72 mm[Hg] Kory Rocha [facility] 4 14:33:51 Date Recorded Body height Body mass index (BMI) Body weight Heart rate Oxygen saturation Oxygen saturation in Arterial blood by Pulse oximetry Systolic And Diastolic Provider Name and Address Organization Details Last Updated DateTime 5 162.56 cm 24.7 kg/m2 69543.3 g 68 /min 98 % 98 % 120/80 mm[Hg] Ghazal Granados [facility] 5 14:49:50 Date Recorded Body height Body mass index (BMI) Body weight Heart rate Oxygen saturation Oxygen saturation in Arterial blood by Pulse oximetry Systolic And Diastolic Provider Name and Address Organization Details Last Updated DateTime 5 162.56 cm 24.7 kg/m2 84376.3 g 68 /min 98 % 98 % 110/68 mm[Hg] Ghazal Granados [facility] 5 15:06:44 Date Recorded Body height Body mass index (BMI) Body weight Oxygen saturation Oxygen saturation in Arterial blood by Pulse oximetry Heart rate Systolic And Diastolic Provider Name and Address Organization Details Last Updated DateTime 2 162.56 cm 24.5 kg/m2 00569.2 7 g 99 % 99 % 62 /min 120/60 mm[Hg] Nyasia Gross [facility] 2 13:50:34 Social History Question Answer Notes LastModified by Organizat ion Details LastModified Time Tobacco Smoking Status Never Smoker Nyasia nunez [facility] 02/02/2022 11:43:30 What Was The Date Of Your Most Recent Tobacco Screening? 01/30/2025 [email or web address] Information not available 01/30/2025 Sex: Unknown Functional Status Question Answer Note LastModified by Organization D etails LastModified Time Do you or have you ever used any other forms of tobacco or nicotine? No [email or web address] Information not available 12/14/2022 Mental Status None recorded. Family History Nothing Reported. Medical History No medical history recorded. Gynecological HistoryNo gynecological history recorded. Obstetrics History GPAL:G 0 P 0 0 0 0 Immunizations Vaccine Type Date Status Note Provider Nam e and Address Organization Details Recorded Time COVID-19, mRNA, LNP-S, PF, 100 mcg/0.5mL dose or 50 mcg/0.25mL dose 1 completed Not Available [facility] 06/26/2023 14:20:47 COVID-19, mRNA, LNP-S, PF, 100 mcg/0.5mL dose or 50 mcg/0.25mL dose 1 completed Not Available [facility] 06/26/2023 14:20:47 COVID-19, mRNA, LNP-S, PF, 100 mcg/0.5mL dose or 50 mcg/0.25mL dose 1 completed Not Available [facility] 06/26/2023 14:20:47 Influenza, split virus, quadrivalent, preservative 3 completed Not Available [facility] 06/26/2023 14:20:46 Influenza, split virus, quadrivalent, preservative 7 completed Not Available [facility] 06/26/2023 14:20:47 Influenza, split virus, quadrivalent, preservative 0 completed Not Available [facility] 06/26/2023 14:20:47 Influenza, split virus, quadrivalent, preservative 1 completed Not Available [facility] 06/26/2023 14:20:46 influenza, X9K2-6184 1 completed Not Available [facility] 06/26/2023 14:20:47 influenza, [id number] 2 completed Not Available [facility] 06/26/2023 14:20:47 Past Encounters Encounter ID Performer Location Encounter Start Date Encounter Closed Date Diagnosis/Indication Diagnosis SNOMED-CT Code Diagnosis ICD10 Code Diagnosis IMO Codes Diagnosis Note [id number] RON QUINTEROS [facility] [address] [place] [address] 02/02/2022 11:21:10 02/03/2022 11:05:37 Carotid artery stenosis 13703228 I65.29 will monitor every year Irritable bowel syndrome 64161639 K58.9 will fu in a few weeks [id number] Adebayo Chacko [facility] [address] [place] [address] 05/26/2022 13:46:02 05/26/2022 14:37:05 Abdominal pain 03722524 R10.9 long detailed discussion for thislong discuss about various factors we will have her get stool cult and pancreatic enzyme fecal elastasesh e will then try miralax daily and [facility] [id number] Adebayo Chacko DO [facility] [address] [place] [address] 12/14/2022 10:57:22 12/14/2022 11:44:36 Herpes zoster 1207951 B02.9 start med combo Pruritic rash 17258070 L 28.2 send out culture [id number] Adebayo Chacko DO [facility] [address] [place] [address] [place] [address] 12/27/2023 14:13:12 12/27/2023 15:00:08 Renewal of prescription 280294659 Z76.0 refilled Depression screening 171 532274 Z13.31 long standing hx of depression , has been seeing Selective serotonin re-uptake inhibitor withdrawal 063902091 T43.205A will have her try clonidine for the withdrawal symptomsca n use ativan as well for the more severe effects Asthma 612617476 J45.90 9 needs refill Multiple b enign melanocytic nevi 909840268 D22.9 will set up with derm [id number] Adebayo Chacko [facility] [address] [facility],[place] [address] 01/30/2025 14:21:42 01/30/2025 15:22:33 Depression screening 702204080 Z13.31 long standing hx of depression , has been seeing Anxiety 40011276 F41.9 will adjust to alt to continue to have patient come down of the duloxetine [id number] Adebayo Chacko [facility] [address] [facility],[place] [address] 04/06/2025 14:59:11 04/06/2025 15:55:17 Depression screening 096236065 Z13.31 long standing hx of depression , has been seeing a therapist Acute resp iratory failure 66193774 J96.01 5625522 Acute syst olic heart failure 965369976 I50.21 668068 Acute card iac pulmonary edema 895445418 J81.0 323682 Health Concerns Section Related Observation LastModified by Organization Detai ls LastModified Time None Recorded Concern Status LastModified by Organization Details LastModified Time None Recorded Advance Directives Directive None Recorded Payers Insurance Date Sequence Insurance Name Policy Number Policy Craig Covered Member ID Craig Member ID Guarantor Name 04/03/2025 1 [facility] - MEDICARE PREFERRED (MEDICARE REPLACEMENT HMO) [employer] Erika Lombardi [id number] Erika Lombardi Notes Date Note Type Note Provider Name a nd Address Organization Details Recorded Time 2 text/html [...] which [facility] had another bout after eating and relates had another bout yesterday always after eating relates she has had a prob with anxiety depress for decades Adebayo Chacko, [address] [place], [address], [facility] [place] 06/01/2022 13:54:38 3 text/html ROS [...] to confirm diagnosisexclude others RON QUINTEROS [address] [place], [address], [facility] [place] 12/14/2022 11:29:06 4 text/html ROS [...] more due to weather RON QUINTEROS [address] [place], [address], [facility] [place] 12/27/2023 14:58:44 5 text/html ROS [...] update on the portal RON QUINTEROS [address] [place], [address], [facility] [place] 01/30/2025 15:21:39 5 text/html ROS as noted in the [facility] hospital d/c the patient reports she is doing wellhad her d/c and her polyp removeddid end up having a life threatening reaction with flash pulm edemathe patient reports that she is overall doing well since d/cno major med changes, finished out courses from the hospital she needed to take had d&c with polyp removal, pre cancerous, has fu to discuss next steps now that she is baseline discussed possible options for hot flashes since she stopped the HRT given situation, for now pt is doing well Echo prior to d/c was great, no R heart strain after the fact, working very well otherwise will keep me updated through the portal RON QUINTEROS [address] [place], [address], [facility] [place] 04/06/2025 15:55:53 OBGyn Episode No OBEpisode recorded.
--- OUTSIDE RECORDS SUMMARY | 2025-05-03 15:25 | XMS_ITS | Encounter Summary ---
Author Organization [facility] Address [address] [facility] [address] [place] [address] Phone Care Team Providers Care Marine Erector Name Role Phone Adebayo Chacko DO Primary Care Provider [phone] Encounter Details Date Type Department Care Team (Latest Contact Info) Description 02/21/2025 Transcribe Orders Virtual Department [address] [place] [address] Chelle Hurtado PA [address] [facility] [place] [address] [place] [address] Postmenopausal bleeding (Primary Dx) Social History Tobacco [...] to endometrial hyperplasia, submucosal fibroid, or malignancy. HEATING EQUIPMENT REPAIRER consultation recommended for consideration of biopsy. 2. Nonvisualization of the ovaries. Narrative 02/28/2025 3:27 PM EDT US PELVIS TRANSABDOMINAL AND TRANSVAGINAL Referring clinician's provided indication for this examination in [facility]: Outside Radiology Order; postmenopausal bleeding TECHNIQUE: [...] clinician's provided indication for this examination in [facility]:Outside Radiology Order; postmenopausal bleeding TECHNIQUE: Pelvic [...] due to endometrial hyperplasia, submucosal fibroid,or malignancy. HEATING EQUIPMENT REPAIRER consultation recommended for consideration of biopsy. 2. Nonvisualization of the ovaries. us Chelle VELASQUEZ IMG US PELVIS Final Resul t documented in this encounter Visit Diagnoses Diagnosis Postmenopausal bleeding- Primary Postmenopausal bleeding documented in this encounter Care Teams Marine Erector Relationship Specialty Start Date End Date Adebayo Chacko DO [address] [place] [address] PCP - General Internal Medicine 02/23/25 documented as of this encounter Additional Source Comments The information contained in this document represents components of the legal health record. It is not the complete legal health record.[facility]
--- OUTSIDE RECORDS SUMMARY | 2025-05-03 15:25 | XMS_ITS | Clinical Summary ---
Author Organization [facility] Address [address] [place] [address] Phone Care Team Providers Care Sheet Metal Insulator Name Role Phone Adebayo Chacko DO Primary Care Provider [phone] Encounters Date Type Department Care Team Description 02/28/2025 1:54 PM EDT - 02/28/2025 11:59 PM EDT Hospital Encounter [facility], [address] [address] Chelle Hurtado PA Discharge Disposition: Home or Self Care 02/21/2025 Transcribe Orders Virtual Department [address] [place] [address] Chelle Hurtado PA Postmenopausal bleeding (Primary Dx) [...] heterogeneous endometrial stripe; endometrial hyperplasia; Nonvisualization ovaries [facility] Anatomical Region Laterality Modality Pelvis, Uterus/Adnexa Ultrasound 02/28/2025 3:24 PM EDT Impressions 02/28/2025 3:27 PM EDT 1. Anteverted uterus with heterogeneous endometrial stripe measuring 14 mm in thickness. This is abnormal in a postmenopausal patient with bleeding. This may be due to endometrial hyperplasia, submucosal fibroid, or malignancy. 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 2. Nonvisualization of the ovaries. Narrative 02/28/2025 3:27 PM EDT US PELVIS TRANSABDOMINAL AND TRANSVAGINAL Referring clinician's provided indication for this examination in [facility]: Outside Radiology Order; postmenopausal bleeding [...] clinician's provided indication for this examination in [facility]:Outside Radiology Order; postmenopausal bleeding TECHNIQUE: [...] due to endometrial hyperplasia, submucosal fibroid,or malignancy. 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 2. Nonvisualization of the ovaries. [facility] [place] VELASQUEZ IM US PELVIS Final Resul t from Last 3 Months Insurance [employer] PREFERRED HMO REPLACEMENT MEDICARE PART A & B Member Subscriber Plan / Payer (Ef fective 2025-Present) Name:Erika Lombardi Member ID:[id number] Relation to Subscriber:Self Name:HarjitErika fleming Subscriber ID:[id number] Payer ID:[id number] Group ID:Not on file Type:Medicare Address: [employer] [address] [employer] PREFERRED HMO REPLACEMENT MEDICARE PART A & B [employer] PREF[employer]ED [employer]MO REPLACEMENT MEDICARE PART A & B [employer] REPLACEMENT MEDICARE PART A & [place] [address] [place] [address] MEDICARE PREFERRED HMO REPLACEMENT MEDICARE PART A & B [employer] REPLACEMENT MEDICARE PART A & B Care Teams Sheet Metal Insulator Relationship Specialty Start Date End Date Adebayo Chacko DO [address] [place] [address] [email or web address] PCP - General Internal Medicine 02/23/25 Additional Source Comments The information contained in this document represents components of the legal health record. It is not the complete legal health record.[facility]
== END 2025-05-03 12:14 | disposition home or self-care (01) ==
LOC: HO.MAMMO 12:13
PROVIDERS: PCP Internal Medicine; Visit Provider Obstetrics & Gynecology
DX: Z12.31 Encounter for screening mammogram for malignant neoplasm of breast (principal)
CPT/HCPCS: 77063; 77067

== ENCOUNTER → 2025-05-03 12:30 | Outpatient (BNV) | payer MEDICARE, SELFPAY | PROVIDERS: PCP Internal Medicine; Visit Provider Internal Medicine | DX: Z12.31 Encounter for screening mammogram for malignant neoplasm of breast (principal) | CPT/HCPCS: 77063; 77067 ==